=== PATIENT | female | born 1935 | race Caucasian/White ===

== ENCOUNTER → 2016-05-17 | Outpatient (CLI) | payer OTHER, BC ==
[~2016-05-17] MED LIST: ALEN70TA4 PO; AMIO200T4 PO; ASCO100061 PO; ASCO500T16 PO; B-CO1TAB21 PO; CALC-51 PO; CHOL100027 PO; CLC100 PO; CRAN500C2 PO; DTR5 PO; ENOX40IN SQ; FLM4 PO; HYDR-5688 PO; KFL500 PO; LEVO125T4 PO; MAGN250T12 PO; MULTTAB58 PO; NITR-5 PO; OXYC1TAB3 PO; PROBCAP8 PO; SPIR25TA89 PO; SYN112 PO; VITA100C4 PO; VITA400C3 PO; [UNRECOGNIZED DRUG - CODE] PO
== END | disposition home or self-care (01) ==
LOC: C.LABSPEC 17:34
PROVIDERS: ATTEND Nurse Practitioner Adult Health
DX: N39.0 Urinary tract infection, site not specified (principal)

== ENCOUNTER → 2016-06-07 | Outpatient (CLI) | payer OTHER, BC ==
[2016-06-07 16:42] LABS: BLOOD UREA NITROGEN 30 mg/dl (7-18); CALCIUM 9.1 mg/dl (8.5-10.1); CARBON DIOXIDE 28 mmol/L (21-32); CHLORIDE 108 mmol/L (98-107); GLUCOSE 114 mg/dl (70-99); POTASSIUM 5.6 mmol/L (3.5-5.1); SODIUM 141 mmol/L (136-145)
== END | disposition home or self-care (01) ==
LOC: C.LAB1850 14:34
PROVIDERS: ATTEND Nurse Practitioner Adult Health
DX: N39.0 Urinary tract infection, site not specified (principal)

== ENCOUNTER → 2016-09-15 | Outpatient (CLI) | payer OTHER, BC ==
[2016-09-15 10:55] LABS: BASO % 0.5 %; BASO ABS # 0.03 K/uL (0-0.2); COMPLETE YES; EOS % 2.5 %; HEMATOCRIT 39.1 % (37-47); LYMPH % 24.2 %; LYMPH ABS # 1.35 K/uL (1.2-3.4); MEAN CELL VOLUME 95.4 fL (80-100); MEAN CORPUSCULAR HGB CONC 31.5 g/dl (32-36); MEAN PLATELET VOLUME 10.3 fL (7.4-10.4); MONO % 6.1 %; NEUT % 66.7 %; PLATELET COUNT 270 K/uL (130-400); WHITE BLOOD COUNT 5.57 K/uL (4.8-10.8)
[2016-09-15 11:23] LABS: BLOOD UREA NITROGEN 26 mg/dl (7-18); BUN/CREATININE RATIO 14.2 (10-20); CALCIUM 9.1 mg/dl (8.5-10.1); CARBON DIOXIDE 30 mmol/L (21-32); CHLORIDE 106 mmol/L (98-107); GLUCOSE 80 mg/dl (70-99); POTASSIUM 4.8 mmol/L (3.5-5.1); SODIUM 140 mmol/L (136-145)
[2016-09-15 11:34] LABS: CHOLESTEROL 147 mg/dl (0-200); CHOLESTEROL/HDL RATIO 3.6; HDL CHOLESTEROL 41 mg/dl; LDL CHOLESTEROL CALCULATED 85 mg/dl; TRIGLYCERIDES 103 mg/dl (0-150); VERY LOW DENSITY LIPOPROT CALC 21 mg/dl
[2016-09-15 12:35] LABS: ESTIMATED AVERAGE GLUCOSE 120 mg/dl; HA1C FLAG Normal (Normal)
--- NOTE | 2016-09-22 08:53 | CODING QUERY MEDICAL NECESSITY ---
SUPPORTING DIAGNOSIS NEEDED Dr. Blakely, A supporting diagnosis is required for the test/procedure performed on this patient in order for us to be reimbursed by the patient's insurance. Please provide a supporting diagnosis for the following test/procedure listed below next to the test name along with your signature. *If there is no additional diagnosis for this patient that would support the following test/procedure please document that below next to the test/procedure. Test(s)/Procedure(s) that require a supporting diagnosis: * [id number] GLYCATED HEMOGLOBIN DIAGNOSIS: DATE OF SERVICE: 09/15/16 Provider Signature: Date: Thank you [facility] Information Management Once completed, please kindly fax back to [phone] For questions please call [phone]
== END | disposition home or self-care (01) ==
LOC: C.LAB1850 09:31
PROVIDERS: ATTEND Internal Medicine
DX: I10 Essential (primary) hypertension (principal); N39.41 Urge incontinence; R32 Unspecified urinary incontinence; N39.0 Urinary tract infection, site not specified; E74.39 Other disorders of intestinal carbohydrate absorption; Z13.1 Encounter for screening for diabetes mellitus

== ENCOUNTER → 2016-11-15 | Outpatient (CLI) | payer OTHER, BC | END | disposition home or self-care (01) | LOC: C.LABSPEC 17:02 | PROVIDERS: ATTEND Urology | DX: N39.0 Urinary tract infection, site not specified (principal) ==

== ENCOUNTER 2016-12-03 11:23 | Emergency (ER) | payer OTHER, BC ==
[~2016-12-03] VITALS: Ht 160 cm; Wt 58.0 kg
[~2016-12-03 11:23] MED LIST changes: -ALEN70TA4 PO; -ASCO500T16 PO; -CHOL100027 PO; -CRAN500C2 PO; -NITR-5 PO; -OXYC1TAB3 PO; -SYN112 PO; -VITA400C3 PO
[2016-12-03 11:27] VITALS: TEMP 37; Ht 160 cm; Wt 58.0 kg
[2016-12-03] MEDS ORDERED: MoRPHine SULFATE 4 MG/ML 1 ML CARP\\VIAL IM STA (11:49)
--- NOTE | 2016-12-03 12:26 | DIAGNOSTIC IMAGING REPORT ---
SACRUM COCCYX MIN 2 VIEWS CLINICAL HISTORY: fall lower coccyx pain trauma COMPARISON STUDY: None FINDINGS: Nondisplaced cortical fracture sacrococcygeal junction. Old fracture right pubic ring. Moderate degenerative change sacroiliac joints. Significant degenerative change lumbar spine. IMPRESSION: Nondisplaced cortical fracture sacrococcygeal junction The above report was generated using voice recognition software. It may contain grammatical, syntax or spelling errors. Electronically signed by: Juni Russo M.D. 12/03/2016 12:24 PM Dictated Date/Time: 12/03/2016 12:22 PM
--- NOTE | 2016-12-03 12:28 | DIAGNOSTIC IMAGING REPORT ---
L PELVIS/UNILATERAL HIP 2-3VIEWS CLINICAL HISTORY: L hip pain trauma COMPARISON: 06/17/2014 DISCUSSION: Operative changes consistent with a a prior left hip pinning procedure. PROCEDURE: Described intertrochanteric fracture has healed. Old fracture right pubic ring unchanged. There is no evidence for soft tissue swelling. IMPRESSION: Findings consistent with old trauma as well as postoperative change. No acute process. The above report was generated using voice recognition software. It may contain grammatical, syntax or spelling errors. Electronically signed by: Juni Russo M.D. 12/03/2016 12:26 PM Dictated Date/Time: 12/03/2016 12:25 PM
[2016-12-03] MEDS ORDERED: SYN112 PO (12:38)
[2016-12-03] MEDS ORDERED: CRAN500C2 PO (12:38)
[2016-12-03] MEDS ORDERED: CHOL100027 PO (12:38)
[2016-12-03] MEDS ORDERED: NITR-5 PO (12:38)
[2016-12-03] MEDS ORDERED: ASCO500T16 PO (12:38)
[2016-12-03] MEDS ORDERED: VITA400C3 PO (12:38)
[2016-12-03] MEDS ORDERED: ALEN70TA4 PO (12:38)
[2016-12-03] MEDS ORDERED: OXYC1TAB3 PO (13:26)
[2016-12-03 13:51] VITALS: BP 151/73; PULSE 67; O2SAT 94
--- NOTE | 2016-12-03 15:14 | EMERGENCY ROOM VISIT NOTE ---
History Report prepared by Keaganibsherron: Edith Mallory Under the Supervision of: Dr. Yony Page D.O. First contact with patient: 11:41 Chief Complaint: FALL Stated Complaint: FELL X 2 WKS. AGO, TAILBONE PAIN History of Present Illness The patient is an 81 year old female who presents to the Emergency Room with complaints of worsening tailbone bone. She is accompanied by her . She reports she fell approximately 2 and a half weeks ago in her bathroom and landed on her bottom, bruising her coccyx. She denies hitting her head or losing consciousness. She followed up with [facility] and no broken bones were seen via X-Ray. In the past 2 days, her pain has worsened. She rates her current pain as an 8/10 in severity. Aleve has provided minimal relief. Her reports she has a history of two previous back surgeries and a broken pelvis. The patient denies any recent weakness or numbness in her bilateral legs. She is still able to urinate and defecate normally. She has experienced no saddle anesthesia or numbness in her groin. The patient also denies headache , change in vision, fevers, chest pain, shortness of breath, abdominal pain, nausea, vomiting, diarrhea, pain with urination, and melena. 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 A total of 10 systems reviewed and were otherwise negative. Past Medical & Surgical Medical Problems: (1) AORTIC VALVE DISORDER (2) HYPERTENSION NOS Social History Smoking Status: Never Smoker Alcohol Use: none Drug Use: none Marital Status: Housing Status: lives with family Occupation Status: retired Current/Historical Medications Scheduled Alendronate Sodium (Fosamax), 70 MG PO WK Amiodarone Hcl (Cordarone), 100 MG PO BID Ascorbic Acid (Ascorbic Acid), 500 MG PO BID B-Complex W/Biotin & Folic Aci (Vitamin B50 Complex Tr), 1 TAB PO QAM Beta Carotene (Beta Carotene), 10,000 UNIT PO DAILY Calcium Carbonate-Vitamin D (Calcium), 1 TABLETS PO BID Cholecalciferol (Vitamin D 1000 Unit), 2,000 INTER.UNIT PO DAILY Cranberry (Vaccinium Macrocarp (Cranberry), 500 MG PO DAILY Levothyroxine Sodium (Synthroid), 112 MCG PO DAILY Magnesium Oxide (Magnesium Oxide), 250 MG PO DAILY Multiple Vitamin (Multivitamin), 1 TABLET PO QAM Nitrofurantoin Monohyd Macrocr (Macrobid), 100 MG PO DAILY Probiotic Product (Probiotic Pearls), 1 CAP PO QAM Spironolactone (Aldactone), 25 MG PO AMPM Vitamin E (Vitamin E 400 Iu), 400 INTER.UNIT PO DAILY Scheduled PRN Oxycodone Immediate Rel Tab (Roxicodone Ir), 5 MG PO Q6H PRN for Pain Allergies Coded Allergies: No Known Allergies (Verified , 12/03/16) Physical Exam Vital Signs Date Time Temp Pulse Resp B/P (MAP) Pulse Ox O2 Delivery O2 Flow Rate FiO2 12/03/16 13:51 67 20 151/73 94 12/03/16 11:27 37.0 79 20 180/72 95 Physical Exam GENERAL: Patient is alert, sitting up in bed, cachectic, no acute distress, non- toxic, holding left lower buttock HEAD: Normocephalic, atraumatic EYE EXAM: normal conjunctiva OROPHARYNX: no exudate, no erythema, lips, buccal mucosa, and tongue normal and mucous membranes are moist NECK: supple, no nuchal rigidity, no adenopathy, non-tender LUNGS: Clear to auscultation. Normal chest wall mechanics HEART: no murmurs, S1 normal and S2 normal ABDOMEN: abdomen soft, non-tender, normo-active bowel sounds, no masses, no rebound or guarding. BACK: Tenderness over left gluteus/coccyx. Back is symmetrical on inspection and there is no deformity, no midline tenderness, no CVA tenderness. SKIN: no rashes and no bruising UPPER EXTREMITIES: upper extremities are grossly normal. LOWER EXTREMITIES: Flexion, extension of hip, knee, ankles and EHL is 5/5. Gross sensation intact. No pitting edema. NEURO EXAM: Normal sensorium Medical Decision & Procedures ER Provider Diagnostic Interpretation: Radiology results as stated below per my review and the radiologist's interpretation: SACRUM COCCYX MIN 2 VIEWS CLINICAL HISTORY: fall lower coccyx pain trauma COMPARISON STUDY: None FINDINGS: Nondisplaced cortical fracture sacrococcygeal junction. Old fracture right pubic ring. Moderate degenerative change sacroiliac joints. Significant degenerative change lumbar spine. IMPRESSION: Nondisplaced cortical fracture sacrococcygeal junction The above report was generated using voice recognition software. It may contain grammatical, syntax or spelling errors. Electronically signed by: Juni Russo M.D. 12/03/2016 12:24 PM L PELVIS/UNILATERAL HIP 2-3VIEWS CLINICAL HISTORY: L hip pain trauma COMPARISON: 06/17/2014 DISCUSSION: Operative changes consistent with a a prior left hip pinning procedure. PROCEDURE: Described intertrochanteric fracture has healed. Old fracture right pubic ring unchanged. There is no evidence for soft tissue swelling. IMPRESSION: Findings consistent with old trauma as well as postoperative change. No acute process. The above report was generated using voice recognition software. It may contain grammatical, syntax or spelling errors. Electronically signed by: Juni Russo M.D. 12/03/2016 12:26 PM Medications Administered Medications (Trade) Dose Ordered Sig/Jennifer Route Start Time Stop Time Status Last Admin Dose Admin Morphine Sulfate (MoRPHine SULFATE INJ) 3 mg NOW STAT IM 12/03/16 11:49 12/03/16 11:52 DC 12/03/16 12:04 3 MG ED Course ED COURSE: Vital signs were reviewed and showed the patient is hypertensive The patients medical record was reviewed The above diagnostic studies were performed and reviewed. ED treatments and interventions as stated above. 1143: The patient was evaluated in room A12. A complete history and physical examination was performed. 1149: Morphine Sulfate 3 mg IM. 1300: Upon reevaluation, the patient is feeling much better. I discussed my findings with the patient and she understands and agrees with the treatment plan. Based on the patients age, coexisting illnesses, exam and lab findings the decision to treat as an outpatient was made. The patient remained stable while under my care. The patient appeared well at the time of discharge. Medical Decision Etiologies such as fracture, dislocation, neurovascular compromise, compartment syndrome, soft tissue injury, as well as others were entertained. Patient is an 81-year-old female that presents to ER for coccyx pain following a fall 2 weeks ago. She notes it is worsening. X-rays show a hairline fracture. I do believe that this is the cause of her pain. No focal deficit. Patient family were updated at bedside. She was given IM morphine and felt significantly better. She was discharged to follow-up with orthopedics with a hairline coccyx fracture. Discussed with Pt concerning signs and symptoms to watch out for. Pt was instructed to follow up with their PCP and discussed with the patient their option to return to the ED at anytime for persistent or worsening symptoms. The appropriate anticipatory guidance and out-patient management, including indications for return to the emergency department, were explained at length to the patient and understood. [place] Drug Monitoring Program Search Results: patient reviewed within database, no issues identified Medication Reconcilliation Current Medication List: was personally reviewed by me Blood Pressure Screening Patient's blood pressure: Elevated blood pressure Blood pressure disposition: Elevated BP felt to be situational Impression Primary Impression: Fracture of coccyx Scribe Attestation The scribe's documentation has been prepared under my direction and personally reviewed by me in its entirety. I confirm that the note above accurately reflects all work, treatment, procedures, and medical decision making performed by me. Departure Information Dispostion Home / Self-Care Prescriptions Oxycodone Immediate Rel Tab (ROXICODONE IR) 5 Mg Tab 5 MG PO Q6H Y for Pain, #14 TAB Prov: Yony Page, DO 12/03/16 Referrals Garfield Blakely M.D. (PCP) Patient Instructions ED Fx Coccyx, [facility] Additional Instructions Please follow up with your primary care doctor or if you are a student, [facility] with in the next 24 hours. Any worsening of your symptoms, please return to the ED immediately. This includes any fevers greater than 100.4, worsening pain, chest pain, shortness breath, persistent nausea, vomiting, unable to eat or drink, or any other concerning signs or symptoms from your standpoint. You were given medications during this visit that will inhibit your ability to drive, operate machinery and work. Please do NOT drive, operate machinery or work for the next 12hrs. You were also given a prescription for a narcotic. While taking this medication you should also not drive, operate machinery and or work. Problem Qualifiers Primary Impression: Fracture of coccyx Encounter type: initial encounter Fracture type: closed Qualified Codes: S32.2XXA - Fracture of coccyx, initial encounter for closed fracture
== END 2016-12-03 13:53 | disposition home or self-care (01) ==
LOC: C.EDB 11:25 → C.EDA 13:53
DX: S32.2XXA Fracture of coccyx, initial encounter for closed fracture (principal); W19.XXXA Unspecified fall, initial encounter; Y92.002 Bathroom of unspecified non-institutional (private) residence as the place of occurrence of the external cause; I10 Essential (primary) hypertension; Z79.899 Other long term (current) drug therapy

== ENCOUNTER → 2017-03-21 | Outpatient (CLI) | payer OTHER, BC ==
[~2017-03-21] MED LIST changes: +ALEN70TA4 PO; -ASCO100061 PO; +ASCO500T16 PO; +CHOL100027 PO; -CLC100 PO; +CRAN500C2 PO; -DTR5 PO; -ENOX40IN SQ; -FLM4 PO; -HYDR-5688 PO; -KFL500 PO; -LEVO125T4 PO; +NITR-5 PO; +OXYC1TAB3 PO; +SYN112 PO; -VITA100C4 PO; +VITA400C3 PO
[2017-03-21 15:45] LABS: BASO % 0.7 %; BASO ABS # 0.04 K/uL (0-0.2); EOS % 3.3 %; HEMATOCRIT 38.3 % (37-47); HEMOGLOBIN 12.7 g/dL (12.0-16.0); IG# 0.01 K/uL (0.00-0.02); LYMPH % 14.8 %; MEAN CELL VOLUME 94.3 fL (80-100); MEAN CORPUSCULAR HEMOGLOBIN 31.3 pg (25-34); MEAN CORPUSCULAR HGB CONC 33.2 g/dl (32-36); MONO % 11.6 %; MONO ABS # 0.71 K/uL (0.11-0.59); NEUT % 69.4 %; NEUT ABS # 4.24 K/uL (1.4-6.5); PLATELET COUNT 320 K/uL (130-400); RED CELL DISTRIBUTION WIDTH CV 13.9 % (11.5-14.5)
[2017-03-21 16:01] LABS: BLOOD UREA NITROGEN 26 mg/dl (7-18); CALCIUM 9.2 mg/dl (8.5-10.1); CARBON DIOXIDE 29 mmol/L (21-32); CREATININE 1.69 mg/dl (0.60-1.20); GLUCOSE 95 mg/dl (70-99); POTASSIUM 5.2 mmol/L (3.5-5.1); SODIUM 132 mmol/L (136-145)
== END | disposition home or self-care (01) ==
LOC: C.LAB1850 14:58
PROVIDERS: ATTEND Internal Medicine Cardiovascular Disease
DX: S32.2XXA Fracture of coccyx, initial encounter for closed fracture (principal); X58.XXXA Exposure to other specified factors, initial encounter

== ENCOUNTER → 2017-05-11 | Outpatient (CLI) | payer OTHER, BC ==
--- NOTE | 2017-05-11 10:24 | DIAGNOSTIC IMAGING REPORT ---
MRI LUMBAR SPINE W/O CONTRAST CLINICAL HISTORY: LUMBAR STENOSIS RIGHT LEG WEAKNESS TECHNIQUE: Sagittal and axial T1, T2 and STIR images were obtained. COMPARISON STUDY: November 2015 OBSERVATIONS: There is a pronounced thoracolumbar scoliosis, making interpretation more difficult. The vertebral bodies and posterior elements appear intact. There is no abnormal bony signal present to suggest a marrow replacement process. L1-2: There is a mild circumferential disc bulge. There is slight triangular narrowing of the thecal sac. There is mild left-sided foraminal narrowing L2-3: There is a circumferential disc bulge. There is mild to moderate spinal stenosis. There is mild left-sided foraminal narrowing L3-4: There is a circumferential disc bulge. There is mild to moderate spinal stenosis. There is mild right-sided foraminal narrowing. L4-5: There is a circumferential disc bulge. There is mild to moderate spinal stenosis. There is severe right-sided foraminal narrowing. L5-S1: No disc protrusions or extrusions. No evidence of spinal canal or neural foraminal compromise. There are postsurgical changes of a left hemilaminectomy. The conus medullaris and cauda equina appear normal. IMPRESSION: 1. No significant change the preceding study 2. Multilevel spondylitic changes 3. Mild to moderate spinal stenosis the L2-3, L3-4, and L4-5 levels. 4. Severe right-sided foraminal narrowing at the L4-5 level. Electronically signed by: Romario Ng M.D. 05/11/2017 10:23 AM Dictated Date/Time: 05/11/2017 10:02 AM
== END | disposition home or self-care (01) ==
LOC: C.MRI 08:57
PROVIDERS: ATTEND Internal Medicine
DX: M48.061 Spinal stenosis, lumbar region without neurogenic claudication (principal)

== ENCOUNTER → 2017-07-20 | Outpatient (CLI) | payer OTHER, BC ==
[~2017-07-20] MED LIST changes: -OXYC1TAB3 PO
[2017-07-20 17:34] LABS: HEMATOCRIT 38.9 % (37-47); HEMOGLOBIN 12.8 g/dL (12.0-16.0); MEAN CELL VOLUME 94.6 fL (80-100); MEAN CORPUSCULAR HEMOGLOBIN 31.1 pg (25-34); MEAN CORPUSCULAR HGB CONC 32.9 g/dl (32-36); MEAN PLATELET VOLUME 9.8 fL (7.4-10.4); PLATELET COUNT 272 K/uL (130-400); RED CELL DISTRIBUTION WIDTH CV 14.8 % (11.5-14.5); RED CELL DISTRIBUTION WIDTH SD 51.5 fL (36.4-46.3); WHITE BLOOD COUNT 5.42 K/uL (4.8-10.8)
[2017-07-20 18:01] LABS: BLOOD UREA NITROGEN 33 mg/dl (7-18); CALCIUM 8.8 mg/dl (8.5-10.1); CARBON DIOXIDE 29 mmol/L (21-32); CREATININE 1.66 mg/dl (0.60-1.20); GLUCOSE 73 mg/dl (70-99); POTASSIUM 5.2 mmol/L (3.5-5.1); SODIUM 137 mmol/L (136-145)
== END | disposition home or self-care (01) ==
LOC: C.LAB1850 16:11
PROVIDERS: ATTEND Physician Assistant
DX: D64.9 Anemia, unspecified (principal); N28.9 Disorder of kidney and ureter, unspecified

== ENCOUNTER 2019-12-28 13:14 | Inpatient (IN) ==
--- NOTE | 2019-12-28 13:52 | Emergency Department Note ---
History of Present Illness General Chief complaint: Leg Injury/Pain Stated complaint: RIGHT LEG SWELLING,WARM Time Seen by Provider: 12/28/19 13:22 Source: patient and family ( who is at the bedside) Mode of arrival: ambulatory Limitations: no limitations History of Present Illness Maximum Pain Intensity: 0 This patient comes in after having some weeping from her right leg. It has been swollen since she had hip surgery about 2 to 3 months ago but she has some clear fluid coming from one small area. The swelling is actually gone down. She has mild swelling her left leg but it does not compared to the right. She has an abrasion on her right callaway that is been there for couple weeks that is healing. She has an old bedsore on the left callaway and right ankle which is also been healing. No fever or chills or redness or warmth. She cannot walk after the surgery and she is wheelchair-bound but lives at home she gets physical therapy 3 times a day. No fever or exposure to [facility]. She did tear her rotator cuff bilaterally about a month ago and she is followed by Dr. Mora for all of her orthopedic issues. No chest pain or shortness of breath occasional cough when she lays flat at night but no shortness of breath when laying flat. She is not on any blood thinner she is had no bleeding or abdominal pain. No urinary symptoms. Home Medications Home Medications Medication Instructions Recorded Confirmed Type Lactobacillus acidophilus 1 1,000 mmu cells PO QAM tab 10/09/18 12/28/19 History billion cell tablet ascorbic acid (vitamin C) 500 mg 500 mg PO BID tab 10/09/18 12/28/19 History tablet calcium carbonate 500 mg calcium 500 mg PO BID tab 10/09/18 12/28/19 History (1,250 mg) tablet multivitamin 1 tab PO QAM 10/09/18 12/28/19 History vitamin B complex 1 tab PO QAM 10/09/18 12/28/19 History vitamin E (dl, acetate) 400 unit 400 units PO QAM 10/09/18 12/28/19 History capsule amiodarone 200 mg tablet 100 mg PO BID #90 tab 07/21/19 12/28/19 Rx alprazolam 0.5 mg tablet 0.5 mg PO HS #90 tab 08/05/19 12/28/19 Rx levothyroxine [Euthyrox] 125 mcg PO QAM 10/05/19 12/28/19 History spironolactone 25 mg PO BID 10/05/19 12/28/19 History alendronate 70 mg PO WK 11/16/19 12/28/19 History peg 400-propylene glycol [Systane 2 drp OPHTHALMIC (EYE) BID PRN 11/16/19 12/28/19 History (propylene glycol)] trimethoprim 100 mg PO QAM 11/16/19 12/28/19 History beta [id number] 1 tab PO QDD 12/28/19 12/28/19 History cholecalciferol (vitamin D3) 50 mcg PO QAM 12/28/19 12/28/19 History [Vitamin D3] diphenhydramine-acetaminophen 2 tab PO HS 12/28/19 12/28/19 History [Tylenol PM Extra Strength] Allergies Allergy/AdvReac Type Severity Reaction Status Date / Time No Known Drug Allergies Allergy Unknown Verified 12/28/19 16:49 Past Med/Surg History Medical History Aortic valve disorder (10/16/12) Benign familial tremor Dysfunction of right eustachian tube Fracture of coccyx Hip fracture, left Idiopathic polyneuropathy Kidney congenitally absent, right Lichen sclerosus Osteoporosis Sensorineural hearing loss (SNHL) of both ears Sensorineural hearing loss (SNHL) of both ears Tinnitus Urge incontinence of urine Varicose veins of both legs with edema Surgical History Femur fracture History of femur repair History of back surgery History of bunionectomy History of knee replacement History of ligation of vein ligation of Long saphenous vein History of lumbar laminectomy Family History Father Lung cancer Mother Lymphoma Other Heart disease Hypertension Social History Smoking Status: Never smoker Hx Alcohol Use: No Hx Substance Use: No Preferred Language: Estonian Communication Ability: Effective Director Of Dietary Required: No Beliefs That Will Affect Care: None marital status: Current Living Situation: Spouse current occupational status: retired Feels Safe at Home: Yes Assistive Devices: Walker Review of Systems A total of 10 systems reviewed and were otherwise negative Physical Exam Vital Signs Vital Signs - 24 hr 12/28/19 13:17 12/28/19 13:57 12/28/19 14:11 Temperature 36.6 C Temperature Source Oral Pulse Rate 74 66 Pulse Rate [Apical] Pulse Rate from SpO2 Sensor 66 Respiratory Rate 16 19 Blood Pressure 161/76 H 150/71 H Blood Pressure [Right Arm] Blood Pressure Mean 104 100 Blood Pressure Mean [Right Arm] Pulse Oximetry 95 98 99 Oxygen Delivery Method Room Air Room Air Room Air Oxygen Flow Rate 0 Sepsis Recent Fever Within 48 Hours No Sepsis New/Unexplained Change in Mental Status N/A Sepsis Action Taken by Nursing No Action Required 12/28/19 16:00 12/28/19 17:33 Temperature Temperature Source Pulse Rate Pulse Rate [Apical] 67 71 Pulse Rate from SpO2 Sensor Respiratory Rate 18 23 Blood Pressure Blood Pressure [Right Arm] 168/72 H 161/70 H Blood Pressure Mean Blood Pressure Mean [Right Arm] 104 100 Pulse Oximetry 99 97 Oxygen Delivery Method Room Air Oxygen Flow Rate Sepsis Recent Fever Within 48 Hours Sepsis New/Unexplained Change in Mental Status Sepsis Action Taken by Nursing General: Well developed well nourished older female who in no acute distress, breathing comfortably on room air. Normal speech HEENT: Normal cephalic atraumatic. Pupils are equal round and reactive to light. Sclera anicteric extraocular movements are intact. Oropharynx is pink with moist mucous membranes. No swelling of the mouth lips or tongue. Neck: Supple with a midline trachea. No meningeal signs or stiffness, no JVD or bruits. No Stridor. Chest: Clear to auscultation bilaterally. No wheezes or rhonchi. No increased work of breathing. Heart: Regular rate and rhythm without murmurs or gallops. Abdomen: Soft nontender, nondistended without rebound guarding or rigidity. Extremities: No cyanosis. She has edema in her right lower extremity there is a small amount of clear drainage. No secondary cellulitis. There is trace to 1+ edema on the left lower extremity. She has an area in her callaway that is healing from an abrasion. She has an area on her left heel as well as the right lateral foot that are healing pressure ulcers and are not red or warm and without drainage.. No calf tenderness Spine/Back. Non tender to palpation. No CVA tenderness Skin: Good turgor without rashes. Neurologic exam: Cranial nerves two through 12 are intact. Motor and sensation are intact and symmetrical throughout. Course Administered Medications Discontinued Medications Heparin Sodium/Dextrose (Heparin Iv Standard *No* Bolus) 1 ea IV ONE ONE; Protocol Stop: 12/28/19 16:45 Last Admin: 12/28/19 17:33 Dose: Not Given Documented by: [id number] Heparin Sodium/Dextrose (Heparin 48164 Unit/500 Ml D5w) Confirm Administered Dose 25,000 units IV .STK-MED ONE Stop: 12/28/19 17:05 Last Admin: 12/28/19 17:29 Dose: 18 units Documented by: [id number] Cosigned by: [id number] Medical Decision Making Differential Diagnosis Postop swelling, cellulitis, DVT, CHF, malnutrition, renal insufficiency, electrolyte or metabolic abnormalities, sepsis, trauma Medical Records Attestation: I reviewed the patient's medical records. Home Medications Current Medication List: was personally reviewed by me Laboratory Data Attestation: I reviewed the patient's lab results. Result diagrams: 12/28/19 14:11 12/28/19 14:11 Lab Results 12/28/19 12/28/19 12/28/19 Range/Units 14:11 14:11 14:11 WBC 6.03 (4.8-10.8) K/uL RBC 3.46 L (4.2-5.4) M/uL Hgb 10.5 L (12.0-16.0) g/dL Hct 33.1 L (37-47) % MCV 95.7 (80-100) fL MCH 30.3 (25-34) pg MCHC 31.7 L (32-36) g/dL RDW Std Deviation 56.9 H (36.4-46.3) fL RDW Coeff of Bret 16.2 H (11.5-14.5) % Plt Count 314 (130-400) K/uL MPV 9.0 (7.4-10.4) fL Immature Gran % (Auto) 0.2 % Neut % (Auto) 73.7 % Lymph % (Auto) 15.6 % Cooper % (Auto) 8.0 % Eos % (Auto) 2.3 % Baso % (Auto) 0.2 % Neut # (Auto) 4.45 (1.4-6.5) K/uL Lymph # (Auto) 0.94 L (1.2-3.4) K/uL Cooper # (Auto) 0.48 (0.11-0.59) K/uL Eos # (Auto) 0.14 (0-0.5) K/uL Baso # (Auto) 0.01 (0-0.2) K/uL Immature Gran # (Auto) 0.01 (0.00-0.02) K/uL PT 10.9 (9.0-12.0) Seconds INR 1.0 (0.9-1.1) APTT 27.3 (21.0-31.0) Seconds PTT Ratio 1.0 Sodium 136 (136-145) mmol/L Potassium 4.9 (3.5-5.1) mmol/L Chloride 103 (98-107) mmol/L Carbon Dioxide 29 (21-32) mmol/L Anion Gap 4.0 (3-11) BUN 26 H (7-18) mg/dl Creatinine 1.27 H (0.6-1.2) mg/dl Est Cr Clr Drug Dosing Not Reportable Est GFR ( Amer) 44.3 Est GFR (Non-Af Amer) 38.2 BUN/Creatinine Ratio 20.1 H (10-20) Glucose 89 (70-99) mg/dl Calcium 9.5 (8.5-10.1) mg/dl Total Bilirubin 0.3 (0.2-1) mg/dl AST 19 (15-37) U/L ALT 18 (12-78) U/L Alkaline Phosphatase 87 (45-117) U/L Troponin I 0.121 H* (0-0.045) ng/ml NT-Pro-B Natriuret Pep 534 (0-1800) pg/ml Total Protein 7.1 (6.4-8.2) gm/dl Albumin 3.1 L (3.4-5.0) gm/dl Globulin 4.0 (2.5-4.0) gm/dl Albumin/Globulin Ratio 0.8 L (0.9-2) Lipase 145 (73-393) U/L Imaging Data Attestation: I personally reviewed and interpreted this imaging study as follows: My Impression: Chest x-raythere is cardiomegaly but no overt CHF, infiltrate or pneumothorax Radiologist's Impression: ULTRASOUND RIGHT LOWER EXTREMITY VENOUS CLINICAL HISTORY: Right leg pain and swelling. COMPARISON STUDY: Right lower extremity venous ultrasound dated 10/25/2011. TECHNIQUE: Real-time, grayscale, and color Doppler sonography of the deep veins of the right lower extremity was performed from the inguinal crease to the calf. Compression and augmentation were utilized. FINDINGS: There is extensive and occlusive deep venous thrombosis seen throughout the right superficial femoral vein. Nonocclusive deep venous thrombosis is identified in the popliteal vein which extends in the calf within the posterior tibial and peroneal veins. The common femoral vein is patent and normally compressible. The greater saphenous vein and the profunda femoris vein at the junction with the common femoral vein are clear. Subcutaneous soft tissue edema is noted. IMPRESSION: Extensive right lower extremity deep venous thrombosis as above. This is occlusive throughout the superficial femoral vein. SINGLE VIEW CHEST CLINICAL HISTORY: Atypical chest pain. FINDINGS: An AP, portable, upright chest radiograph is compared to study dated 10/05/2019. The examination is degraded by portable technique and patient rotation. The heart is enlarged. The pulmonary vasculature is noncongested. There is elevation right hemidiaphragm with associated right basilar atelectasis. No airspace consolidation or large pleural effusion is identified. No pneumothorax is seen. The skeletal structures are osteopenic. The bony thorax is grossly intact. Arthritic change is seen in the shoulders. Superior subluxation of the humeral heads suggest chronic rotator cuff injuries. IMPRESSION: Cardiomegaly with no acute cardiopulmonary abnormality. ECG Data Attestation: I personally reviewed and interpreted this ECG as follows: Indication: + weakness Rate (beats per minute): 67 Rhythm: + normal sinus ECG Intervals/blocks: + First degree AV block, + Normal QRS and + Normal QT ECG [place]: + Normal ECG ST segments: + Normal ST segments ECG Findings: no PACs and no PVCs Comparison ECG Date: from (10/07/19) Change: no significant change MDM Narrative This patient comes in as described above. She was placed in room a 10. She has had swelling of her right leg. It does not appear to be cellulitic its not significantly red or warm. IV access established and blood work was obtained. I also did EKG and chest x-ray additionally ultrasound of the right lower extremity to evaluate for DVT. She was reassessed frequently. She is hemodynamically stable she has no chest pain or shortness of breath. EKG a ppears nonischemic however her troponin is mildly elevated 0.121. Additionally she has had extensive DVT in her right lower extremity. She did have hip surgery 2 to 3 months ago but no surgery since then. She has had no blood or melena stool no trauma no headache. There are no other current obvious contraindications for anticoagulation at this point particular given the large size of her DVT. I have discussed the case with Dr. Hatch, who will be admitting her and he wants to start on IV heparin and he did order this without a bolus. She does have swelling the leg which is likely related to the DVT with some weeping but no secondary cellulitis. She has no white count or fever to suggest infection. She has no significant electrolyte or metabolic abnormalities. Continuous cardiac monitoring: Given her lower extremity edema and need for cardiac/pulmonary work-up, an order was placed in the EMR for continuous cardiac monitoring. The patient was noted to be in normal sinus rhythm with a pulse of 71. Impression & Plan DVT (deep venous thrombosis), Elevated troponin I level, Edema of right lower extremity, S/P right hip fracture Discharge Plan Visit Data Chief Complaint: Leg Injury/Pain Stated Complaint: RIGHT LEG SWELLING,WARM ED Provider: Roger Noel Discharge Problem: DVT (deep venous thrombosis), Elevated troponin I level, Edema of right lower extremity, S/P right hip fracture Discharge Instructions Interventions: ED Discharge Assessment Last Done: 12/28/19 17:43 Forms Stand Alone Forms: My [facility] [place] Prescriptions Prescriptions: No Action amiodarone 200 mg tablet 100 mg PO BID Qty: 90 RF: 3 alprazolam 0.5 mg tablet 0.5 mg PO HS Qty: 90 RF: 1 Lactobacillus acidophilus 1 billion cell tablet 1,000 mmu cells PO QAM RF: 0 calcium carbonate [Calcium 500] 500 mg calcium (1,250 mg) tablet 500 mg PO BID RF: 0 multivitamin [Daily Multi-Vitamin] tablet 1 tab PO QAM RF: 0 vitamin B complex [Vitamins B Complex] tablet 1 tab PO QAM RF: 0 ascorbic acid (vitamin C) 500 mg tablet 500 mg PO BID RF: 0 vitamin E (dl, acetate) 400 unit capsule 400 units PO QAM RF: 0 levothyroxine [Euthyrox] 125 mcg tablet 125 mcg PO QAM RF: 0 spironolactone 25 mg tablet 25 mg PO BID RF: 0 beta [id number]-G-lutein-min29 5,000-60-30-2 geqc-cm-puly-mg Tablet 1 tab PO QDD RF: 0 cholecalciferol (vitamin D3) [Vitamin D3] 50 mcg (2,000 unit) Tablet 50 mcg PO QAM RF: 0 diphenhydramine-acetaminophen [Tylenol PM Extra Strength] 25-500 mg Tablet 2 tab PO HS RF: 0 trimethoprim 100 mg tablet 100 mg PO QAM RF: 0 Systane (propylene glycol) 0.4-0.3 % Drops 2 drp OPHTHALMIC (EYE) BID PRN (Reason: Dry Eyes) RF: 0 alendronate 70 mg tablet 70 mg PO WK RF: 0 Referrals Referrals: Garfield Blakely MD [Primary Care Provider] - Discharge Problem: DVT (deep venous thrombosis) Qualifiers: DVT location: lower extremity Affected thrombotic vein of extremity: femoral Chronicity: acute Laterality: right Qualified Code(s): I82.411 - Acute embolism and thrombosis of right femoral vein
[2019-12-28 14:18] LABS: Basophils # (auto) 0.01 K/uL (0-0.2); Basophils % (auto) 0.2 %; Eosinophils # (auto) 0.14 K/uL (0-0.5); Eosinophils % (auto) 2.3 %; Hematocrit (blood only) 33.1 % (37-47); Hemoglobin 10.5 g/dL (12.0-16.0); Immature Granulocytes # (auto) 0.01 K/uL (0.00-0.02); Immature Granulocytes % (auto) 0.2 %; Lymphocytes # (auto) 0.94 K/uL (1.2-3.4); Lymphocytes % (auto) 15.6 %; Mean Corpuscular Hemoglobin 30.3 pg (25-34); Mean Corpuscular Hgb Conc 31.7 g/dL (32-36); Mean Corpuscular Volume 95.7 fL (80-100); Monocytes # (auto) 0.48 K/uL (0.11-0.59); Neutrophils # (auto) 4.45 K/uL (1.4-6.5); Neutrophils % (auto) 73.7 %; Platelet Count 314 K/uL (130-400); RDW Coefficient of Variation 16.2 % (11.5-14.5); RDW Standard Deviation 56.9 fL (36.4-46.3); Red Blood Count 3.46 M/uL (4.2-5.4); White Blood Count 6.03 K/uL (4.8-10.8)
--- NOTE | 2019-12-28 14:26 | XRay Report ---
SINGLE VIEW CHEST CLINICAL HISTORY: Atypical chest pain. FINDINGS: An AP, portable, upright chest radiograph is compared to study dated 10/05/2019. The examina tion is degraded by portable technique and patient rotation. The heart is enlarged. The pulmonary vas culature is noncongested. There is elevation right hemidiaphragm with associated right basilar atelec tasis. No airspace consolidation or large pleural effusion is identified. No pneumothorax is seen. Th e skeletal structures are osteopenic. The bony thorax is grossly intact. Arthritic change is seen in the shoulders. Superior subluxation of the humeral heads suggest chronic rotator cuff injuries. IMPRESSION: Cardiomegaly with no acute cardiopulmonary abnormality. ACT 112: Negative or not required by law. Electronically signed by: Burt Candelaria M.D. 12/28/2019 2:25 PM
[2019-12-28 14:30] LABS: Partial Thromboplastin Time 27.3 Seconds (21.0-31.0); Prothrombin Time 10.9 Seconds (9.0-12.0)
[2019-12-28 14:33] LABS: Alanine Aminotransferase 18 U/L (12-78); Albumin Level 3.1 gm/dl (3.4-5.0); Aspartate Aminotransferase 19 U/L (15-37); BUN Creatinine Ratio 20.1 (10-20); Blood Urea Nitrogen 26 mg/dl (7-18); Calcium 9.5 mg/dl (8.5-10.1); Carbon Dioxide 29 mmol/L (21-32); Chloride 103 mmol/L (98-107); Est GFR (African American) 44.3; Est GFR (Non-African American) 38.2; Glucose 89 mg/dl (70-99); Lipase 145 U/L (73-393); Potassium 4.9 mmol/L (3.5-5.1); Sodium 136 mmol/L (136-145)
[2019-12-28 14:47] LABS: Albumin Globulin Ratio 0.8 (0.9-2); Alkaline Phosphatase 87 U/L (45-117); Bilirubin,Total 0.3 mg/dl (0.2-1); NT Pro B Type Natriuretic Pept 534 pg/ml (0-1800); Total Protein 7.1 gm/dl (6.4-8.2); Troponin I 0.121 ng/ml (0-0.045)
--- NOTE | 2019-12-28 15:42 | Ultrasound Report ---
ULTRASOUND RIGHT LOWER EXTREMITY VENOUS CLINICAL HISTORY: Right leg pain and swelling. COMPARISON STUDY: Right lower extremity venous ultrasound dated 10/25/2011. TECHNIQUE: Real-time, grayscale, and color Doppler sonography of the deep veins of the right lower ex tremity was performed from the inguinal crease to the calf. Compression and augmentation were utilize d. FINDINGS: There is extensive and occlusive deep venous thrombosis seen throughout the right superfici al femoral vein. Nonocclusive deep venous thrombosis is identified in the popliteal vein which extend s in the calf within the posterior tibial and peroneal veins. The common femoral vein is patent and n ormally compressible. The greater saphenous vein and the profunda femoris vein at the junction with t he common femoral vein are clear. Subcutaneous soft tissue edema is noted. IMPRESSION: Extensive right lower extremity deep venous thrombosis as above. This is occlusive throug hout the superficial femoral vein. ACT 112: Negative or not required by law. Electronically signed by: Burt Candelaria M.D. 12/28/2019 3:40 PM
[2019-12-28] MEDS ORDERED: Heparin IV Standard *NO* Bolus IV ONE (16:44)
--- NOTE | 2019-12-28 17:02 | History & Physical Report ---
Date of Service December 28, 2019 Assessment & Plan (1) Acute DVT (deep venous thrombosis): Provoked secondary to hip surgery although continued immobility - consider 6 months to lifelong anticoagulation depending on mobility. Heparin standard IV drip without bolus Pending improvement in renal function consider switching to DOAC tomorrow. (2) Elevated troponin I level: Suspect demand-ischemia. Repeat with AM labs. No EKG changes. No hypoxia, chest pain or shortness of breath to suggest PE. (3) Venous ulcers of both lower extremities: No areas definitive of cellulitis. WBC WNL. Antibiotics deferred currently. Elevated both lower extremities to see if erythema resolves. Wound nurse consult. (4) Paroxysmal atrial fibrillation: Currently in NSR. Continue rhythm control with amiodarone 100mg PO BID (5) Hypothyroidism: TSH 8.94 in July. Will repeat TSH with free T4 with AM labs to consider increasing levothyoxine (currently 125 mcg PO daily). (6) Essential tremor: Noted. (7) Hypertension: Hold spironolactone, clinically dry despite edema in legs. (8) CKD (chronic kidney disease) stage 3, GFR 30-59 ml/min: Monitor with AM labs. (9) Kidney congenitally absent, right: Admission and Anticipated Discharge Date Admission Date: 12/28/2019 History of Present Illness Chief Complaint: Right leg swelling Primary Care Provider: Garfield Blakely MD Geena Langston is an 84 year old female who presents to the ER with weeping fluid from her right leg. Difficult to get exact timeline from patient and her but they reports swelling in her right leg since her right hip operation in September after a hip fracture. However, the swelling has been much worse over the last 2 weeks right > left and her is very concerned about fluid seeping out from it. She has multiple venous ulcers / bed sores in various stages of healing which he is also finding harder to treat since her legs are so swollen. She took aspirin 81mg BID for 6 weeks following the operation but has not been on any antiplatelets/anticoagulation since. She denies any fevers or chills. She denies any history of congestive heart failure. She has been wheelchair-bound since this operation but has physical therapy 3 times a day. Of note she was recently treated for a pseudomonas UTI in November with ciprofloxacin. Her symptoms have completely resolved from this. In the ER US venous doppler confirmed extensive DVT in RLE. She also had a minimally elevated troponin but no EKG changes and denies any chest pain or shortness of breath. Allergies Allergy/AdvReac Type Severity Reaction Status Date / Time No Known Drug Allergies Allergy Unknown Verified 12/28/19 16:49 Home Medications Home Medications Medication Instructions Recorded Confirmed Type Lactobacillus acidophilus 1 1,000 mmu cells PO QAM tab 10/09/18 12/28/19 History billion cell tablet ascorbic acid (vitamin C) 500 mg 500 mg PO BID tab 10/09/18 12/28/19 History tablet calcium carbonate 500 mg calcium 500 mg PO BID tab 10/09/18 12/28/19 History (1,250 mg) tablet multivitamin 1 tab PO QAM 10/09/18 12/28/19 History vitamin B complex 1 tab PO QAM 10/09/18 12/28/19 History vitamin E (dl, acetate) 400 unit 400 units PO QAM 10/09/18 12/28/19 History capsule amiodarone 200 mg tablet 100 mg PO BID #90 tab 07/21/19 12/28/19 Rx alprazolam 0.5 mg tablet 0.5 mg PO HS #90 tab 08/05/19 12/28/19 Rx levothyroxine [Euthyrox] 125 mcg PO QAM 10/05/19 12/28/19 History spironolactone 25 mg PO BID 10/05/19 12/28/19 History alendronate 70 mg PO WK 11/16/19 12/28/19 History peg 400-propylene glycol [Systane 2 drp OPHTHALMIC (EYE) BID PRN 11/16/19 12/28/19 History (propylene glycol)] trimethoprim 100 mg PO QAM 11/16/19 12/28/19 History beta [id number] 1 tab PO QDD 12/28/19 12/28/19 History cholecalciferol (vitamin D3) 50 mcg PO QAM 12/28/19 12/28/19 History [Vitamin D3] diphenhydramine-acetaminophen 2 tab PO HS 12/28/19 12/28/19 History [Tylenol PM Extra Strength] Past Med/Surg History Medical History Aortic valve disorder (10/16/12) Benign familial tremor Dysfunction of right eustachian tube Fracture of coccyx Hip fracture, left Idiopathic polyneuropathy Kidney congenitally absent, right Lichen sclerosus Osteoporosis Sensorineural hearing loss (SNHL) of both ears Sensorineural hearing loss (SNHL) of both ears Tinnitus Urge incontinence of urine Varicose veins of both legs with edema Surgical History Femur fracture History of femur repair History of back surgery History of bunionectomy History of knee replacement History of ligation of vein ligation of Long saphenous vein History of lumbar laminectomy Family History Father Lung cancer Mother Lymphoma Other Heart disease Hypertension Social History Smoking Status: Never smoker Hx Alcohol Use: No Hx Substance Use: No Preferred Language: French Communication Ability: Effective Bioinformatics Specialist Required: No Beliefs That Will Affect Care: None marital status: Current Living Situation: Spouse current occupational status: retired Feels Safe at Home: Yes Safety Concerns: Feels Safe At This Time Assistive Devices: Denture - Upper, Denture - Lower, Glasses, Walker and Wheelchair Review of Systems Review of Systems: All systems reviewed & are unremarkable except as noted in HPI & below Physical Exam Constitutional: well developed and + frail appearing; + not well nourished and no acute distress Eyes: + anicteric sclerae; normal pupil size ENMT: external ear and nose normal, oropharynx normal Neck: trachea midline; no tracheal deviation Respiratory: normal respiratory effort, lungs clear to auscultation Cardiovascular: Rate/Rhythm: regular rate and regular rhythm Heart Sounds: no murmur Vessels: no JVD Extremities: normal capillary refill and + edema (3+ pitting edema R to hip, 2+ to mid callaway on L); no calf tenderness Gastrointestinal (Abdomen): normal bowel sounds, soft, nontender, no hepatosplenomegaly Musculoskeletal: Moving toes equally, unable to move her legs with current weight of them from swelling. Generalized chronic b/l equal muscle wasting. Skin: Right lateral malleolus (unstageable, healing) and heel ulcers (stage 2), Right heel ulcer Neurologic: moves all extremities and awake; no focal motor deficits (no later alizing weakness) and not confused Psychiatric: A+Ox3, euthymic affect Genitourinary: no CVA tenderness Results & Data Results & Data ([facility]) Vital Signs (Past 12 Hours) Vital Signs Temp Pulse Pulse Resp BP BP Pulse Ox 12/28/19 16:00 67 18 168/72 H 99 12/28/19 14:11 66 19 150/71 H 99 12/28/19 13:57 98 12/28/19 13:17 36.6 C 74 16 161/76 H 95 Diagnostic Findings SINGLE VIEW CHEST IMPRESSION: Cardiomegaly with no acute cardiopulmonary abnormality. ULTRASOUND RIGHT LOWER EXTREMITY VENOUS IMPRESSION: Extensive right lower extremity deep venous thrombosis as above. This is occlusive throughout the superficial femoral vein. ECG Indication: other Rate (beats per minute): 67 Rhythm: normal sinus Findings: + 1st degree AV block; no acute ischemic change Comparison ECG Date: from (October 07, 2019) Change: no significant change Code Status & VTE Plan Code Status DNR/DNI as discussed with the patient and her VTE Prophylaxis Plan VTE Prophylaxis will be ordered: Yes PG Care Time/CCT Total # of Minutes Spent Total Time Spent with Patient: Total time spent is greater than 50% in coordination of care (as documented) at patient's floor/unit and/or counseling patient: Coding Level of Care Code 91540 OBS Care - Level 3 Diagnoses Acute DVT (deep venous thrombosis) I82.409 Elevated troponin I level R77.8 Venous ulcers of both lower extremities I83.019; I83.029; L97.919; L97.929 Paroxysmal atrial fibrillation I48.0 Hypothyroidism E03.9 Essential tremor G25.0 Hypertension I15.2 Hypertension type: secondary to endocrine disorders CKD (chronic kidney disease) stage 3, GFR 30-59 ml/min N18.30 Kidney congenitally absent, right Q60.0 (1) Hypertension Hypertension type: secondary to endocrine disorders Qualified Code(s): I15.2 - Hypertension secondary to endocrine disorders
[2019-12-28] MEDS ORDERED: HEPARIN 25000 UNIT/500 ML D5W IV ONE (17:04)
[2019-12-28] MEDS ORDERED: PATIENT'S HEIGHT AND/OR WEIGHT NEEDED ONE (18:00)
[2019-12-28] MEDS: HEPARIN SODIUM/DEXTROSE 25,000 UNITS/500 ML BAG IV SCH ×2 (19:45→20:36)
[2019-12-28] MEDS ORDERED: ARTIFICIAL TEARS OP PRN (20:27)
[2019-12-28] MEDS ORDERED: NON-FORMULARY MEDICATION (Diphenhydramine-Acetaminophen [Tylenol Pm Extra Strength] 2 TAB) PO SCH (21:00)
[2019-12-28] MEDS: AMIODARONE 200 MG TAB PO SCH (21:29)
[2019-12-28] MEDS: CALCIUM CARBONATE 1250MG TAB PO SCH (21:29)
[2019-12-28] MEDS: ASCORBIC ACID 500 MG TAB PO SCH (21:30)
[2019-12-28] MEDS: ALPRAZolam 0.5 MG TABLET PO SCH (21:45)
[2019-12-28] MEDS: ACETAMINOPHEN 325 MG TAB PO PRN (21:45)
[2019-12-29 00:22] LABS: Partial Thromboplastin Ratio 2.6
[2019-12-29 00:30] LABS: Partial Thromboplastin Time 71.2 Seconds (21.0-31.0)
[2019-12-29] MEDS: LEVOTHYROXINE SODIUM 125 MCG TABLET PO SCH (05:15)
[2019-12-29 07:03] LABS: Hematocrit (blood only) 30.7 % (37-47); Hemoglobin 9.7 g/dL (12.0-16.0); Mean Corpuscular Hemoglobin 29.9 pg (25-34); Mean Corpuscular Hgb Conc 31.6 g/dL (32-36); Mean Corpuscular Volume 94.8 fL (80-100); Platelet Count 326 K/uL (130-400); RDW Standard Deviation 55.9 fL (36.4-46.3); Red Blood Count 3.24 M/uL (4.2-5.4); White Blood Count 4.97 K/uL (4.8-10.8)
[2019-12-29 07:25] LABS: Partial Thromboplastin Ratio 3.3
[2019-12-29 07:30] LABS: BUN Creatinine Ratio 17.5 (10-20); Calcium 9.3 mg/dl (8.5-10.1); Creatinine Clr Calc Pharmacy 28.8 ml/min; Est GFR (African American) 49.4; Est GFR (Non-African American) 42.6; Potassium 4.2 mmol/L (3.5-5.1)
[2019-12-29 07:32] LABS: Partial Thromboplastin Time 92.3 Seconds (21.0-31.0)
[2019-12-29 07:42] LABS: Thyroid Stimulating Hormone 12.5 uIu/ml (0.300-4.500); Troponin I 0.394 ng/ml (0-0.045)
[2019-12-29 07:56] LABS: T4 Free Thyroxine 1.46 ng/dl (0.8-1.6)
[2019-12-29] MEDS: CALCIUM CARBONATE 1250MG TAB PO SCH ×2 (08:45→22:10)
[2019-12-29] MEDS: AMIODARONE 200 MG TAB PO SCH ×2 (08:45→22:10)
[2019-12-29] MEDS: MULTIVITAMIN TAB PO SCH (08:46)
[2019-12-29] MEDS: ADVANCED PROBIOTIC 1250 MG CAPSULE PO SCH (08:46)
[2019-12-29] MEDS: VITAMIN B COMPLEX TAB PO SCH (08:46)
[2019-12-29] MEDS: CHOLECALCIFEROL 1,000 UNITS 25 MCG TAB PO SCH (08:46)
[2019-12-29] MEDS: TOCOPHERYL, DL-ALPHA 400 UNITS CAP PO SCH (08:46)
[2019-12-29] MEDS: ASCORBIC ACID 500 MG TAB PO SCH ×2 (08:46→22:11)
[2019-12-29 12:11] LABS: Appearance Urine Clear (Clear); Bilirubin Urine Negative (Negative); Blood Urine Negative (Negative); Color Urine Yellow; Glucose Urine UA Negative (Negative); Ketones Urine Negative (Negative); Leukocyte Esterase Urine Negative (Negative); Nitrite Urine Negative (Negative); Protein Urine Negative (Negative); Specific Gravity Urine 1.012 (1.000-1.030); Urobilinogen Urine Negative (Negative); pH Urine 8.5 (4.5-7.5)
--- NOTE | 2019-12-29 12:35 | Electrocardiogram Report ---
Test Reason : Blood Pressure : / mmHG Vent. Rate : 067 BPM Atrial Rate : 067 BPM P-R Int : 226 ms QRS Dur : 098 ms QT Int : 434 ms P-R-T Axes : 083 050 061 degrees QTc Int : 458 ms Sinus rhythm with 1st degree A-V block Incomplete right bundle branch block Otherwise normal ECG When compared with ECG of 07-OCT-2019 18:12, No significant change was found Confirmed by Janes Bran ([id number]) on 12/29/2019 12:35:02 PM Referred By: ED Confirmed By:Janes Bran
[2019-12-29 14:30] LABS: Partial Thromboplastin Ratio 1.9
[2019-12-29 14:43] LABS: Partial Thromboplastin Time 53.3 Seconds (21.0-31.0)
--- NOTE | 2019-12-29 15:20 | Hospitalist Progress Note ---
Date of Service December 29, 2019 Assessment & Plan (1) Acute DVT (deep venous thrombosis): Provoked secondary to remote hip surgery although continued immobility - consider 6 months to lifelong anticoagulation depending on mobility. Continue Heparin standard IV drip without bolus. Start warfarin 5mg daily, PTINR daily. (2) Elevated troponin I level: Suspect demand-ischemia. Repeat with AM labs. No EKG changes. No hypoxia, chest pain or shortness of breath to suggest PE/ACS. (3) Venous ulcers of both lower extremities: No areas definitive of cellulitis. WBC WNL. Antibiotics deferred currently. Erythema improving. Continue to elevate b/l LE. Wound nurse consult. (4) Paroxysmal atrial fibrillation: Currently in NSR. Continue rhythm control with amiodarone 100mg PO BID (5) Hypothyroidism: TSH 8.94 in July. Will repeat TSH with free T4 with AM labs to consider increasing levothyoxine (currently 125 mcg PO daily). (6) Essential tremor: Noted. (7) Hypertension: Cr improved and leg swelling improving with holding spironolactone. Continue off this and monitor BP. routinely. (8) CKD (chronic kidney disease) stage 3, GFR 30-59 ml/min: Monitor with AM labs. (9) Kidney congenitally absent, right: Admission and Anticipated Discharge Date Admission Date: December 28, 2019 Subjective at bedside feels legs have mildly improved in size. Patient feels much the same, no concerns or complaints at this time. Still having a lot of trouble moving her leg due to the weight of it. No fever or chills. Erythema improving. Regarding elevated troponin she denies any chest pain or shortness of breath. Discussed DOAC vs warfarin and given her renal function recommended warfarin. Review of Systems Review of Systems: All systems reviewed & are unremarkable except as noted in HPI & below Physical Exam Constitutional: well developed and + frail appearing; + not well nourished and no acute distress Eyes: + anicteric sclerae; normal pupil size ENMT: external ear and nose normal, oropharynx normal Respiratory: normal respiratory effort, lungs clear to auscultation Cardiovascular: Rate/Rhythm: regular rate and regular rhythm Heart Sounds: no murmur Vessels: no JVD Extremities: normal capillary refill and + edema (2+ pitting edema R to hip, 1+ to mid callaway on L); no calf tenderness Gastrointestinal (Abdomen): normal bowel sounds, soft, nontender, no hepatosplenomegaly Skin: + erythema (generalized right leg improving without antibiotics) Neurologic: moves all extremities and awake; no focal motor deficits (no lateralizing weakness) and not confused Psychiatric: A+Ox3, euthymic affect Results & Data Results & Data ([facility]) Vital Signs (Past 12 Hours) Vital Signs Temp Pulse Pulse Resp BP Pulse Ox 12/29/19 07:56 36.8 C 64 18 129/71 94 12/29/19 06:59 70 12/29/19 03:42 68 12/29/19 03:40 78 12/29/19 03:36 36.9 C 67 16 146/64 H 93 PG Care Time/CCT Total # of Minutes Spent Total Time Spent with Patient: Total time spent is greater than 50% in coordination of care (as documented) at patient's floor/unit and/or counseling patient: Coding Level of Care Code 24252 Subseq Hosp Care Lvl 2 Diagnoses Acute DVT (deep venous thrombosis) I82.409 Elevated troponin I level R77.8 Venous ulcers of both lower extremities I83.019; I83.029; L97.919; L97.929 Paroxysmal atrial fibrillation I48.0 Hypothyroidism E03.9 Essential tremor G25.0 Hypertension I15.2 Hypertension type: secondary to endocrine disorders CKD (chronic kidney disease) stage 3, GFR 30-59 ml/min N18.30 Kidney congenitally absent, right Q60.0 (1) Hypertension Hypertension type: secondary to endocrine disorders Qualified Code(s): I15.2 - Hypertension secondary to endocrine disorders
--- NOTE | 2019-12-29 15:54 | XCELERA ---
[id number]
[2019-12-29] MEDS ORDERED: [UNRECOGNIZED DRUG - OTHER] PO SCH (16:30)
[2019-12-29] MEDS ORDERED: WARFARIN SOD 10 MG TAB PO ONE (16:59)
[2019-12-29] MEDS ORDERED: WARFARIN SOD 5 MG TAB PO ONE (17:01)
[2019-12-29] MEDS: ALPRAZolam 0.5 MG TABLET PO SCH (22:11)
[2019-12-30] MEDS: HEPARIN SODIUM/DEXTROSE 25,000 UNITS/500 ML BAG IV SCH (02:00)
[2019-12-30] MEDS: LEVOTHYROXINE SODIUM 125 MCG TABLET PO SCH (05:25)
[2019-12-30 06:22] LABS: Basophils # (auto) 0.03 K/uL (0-0.2); Basophils % (auto) 0.5 %; Eosinophils # (auto) 0.19 K/uL (0-0.5); Eosinophils % (auto) 3.4 %; Hematocrit (blood only) 30.3 % (37-47); Hemoglobin 9.7 g/dL (12.0-16.0); Lymphocytes # (auto) 1.55 K/uL (1.2-3.4); Lymphocytes % (auto) 27.7 %; Mean Corpuscular Volume 93.8 fL (80-100); Mean Platelet Volume 9.1 fL (7.4-10.4); Monocytes # (auto) 0.42 K/uL (0.11-0.59); Monocytes % (auto) 7.5 %; Neutrophils % (auto) 60.9 %; Platelet Count 293 K/uL (130-400); RDW Coefficient of Variation 15.7 % (11.5-14.5); RDW Standard Deviation 53.7 fL (36.4-46.3); Red Blood Count 3.23 M/uL (4.2-5.4); White Blood Count 5.59 K/uL (4.8-10.8)
[2019-12-30 06:38] LABS: INR 1.1 (0.9-1.1); Partial Thromboplastin Ratio 2.4; Partial Thromboplastin Time 66.4 Seconds (21.0-31.0); Prothrombin Time 11.1 Seconds (9.0-12.0)
[2019-12-30 08:07] LABS: BUN Creatinine Ratio 16.2 (10-20); Calcium 8.7 mg/dl (8.5-10.1); Creatinine Clr Calc Pharmacy 28.6 ml/min; Est GFR (African American) 48.9; Est GFR (Non-African American) 42.2; Potassium 3.9 mmol/L (3.5-5.1)
[2019-12-30 08:18] LABS: Troponin I 0.679 ng/ml (0-0.045)
[2019-12-30] MEDS: ASCORBIC ACID 500 MG TAB PO SCH ×2 (08:36→21:31)
[2019-12-30] MEDS: CALCIUM CARBONATE 1250MG TAB PO SCH ×2 (08:36→21:30)
[2019-12-30] MEDS: TOCOPHERYL, DL-ALPHA 400 UNITS CAP PO SCH (08:36)
[2019-12-30] MEDS: CHOLECALCIFEROL 1,000 UNITS 25 MCG TAB PO SCH (08:36)
[2019-12-30] MEDS: AMIODARONE 200 MG TAB PO SCH ×2 (08:36→21:30)
[2019-12-30] MEDS: ADVANCED PROBIOTIC 1250 MG CAPSULE PO SCH (08:36)
[2019-12-30] MEDS: VITAMIN B COMPLEX TAB PO SCH (08:36)
[2019-12-30] MEDS: MULTIVITAMIN TAB PO SCH (08:36)
[2019-12-30] MEDS ORDERED: VANCOMYCIN CONSULT ACTIVE PRN (14:45)
[2019-12-30] MEDS ORDERED: VANCOMYCIN HCL 1,250 MG in SODIUM CHLORIDE 0.9% 250 ML IV ONE (15:30)
--- NOTE | 2019-12-30 16:39 | XRay Report ---
XR foot RT 2V CLINICAL HISTORY: right lateral foot ulcer; eval osteomyelitis COMPARISON: None FINDINGS: Tarsometatarsal joints are intact. There is hallux valgus deformity. Right foot and ankle soft tissue swelling is noted. A wound of the lateral right ankle/hindfoot is noted. There is associa joel soft tissue swelling. There is no radiographic evidence for osteomyelitis within the right foot o r ankle. 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 No acute frac ture is identified. IMPRESSION: Wound of the lateral right ankle/hindfoot. No radiographic evidence for osteomyelitis. Soft tissue sw elling. ACT 112: Negative or not required by law. Electronically signed by: Casper Jacome M.D. 12/30/2019 4:37 PM
--- NOTE | 2019-12-30 16:46 | XRay Report ---
XR calcaneus LT min 2V CLINICAL HISTORY: ulcer; eval for changes of osteomyelitis COMPARISON: None FINDINGS: Note is made of soft tissue swelling with suspected wound overlying the posterior inferior aspect of the left calcaneus. Note is made of a 9 mm lucent focus within the adjacent portion of the calcaneus. No calcaneal fracture is identified. Subtalar joint is intact. IMPRESSION: Left heel wound with soft tissue swelling and a 9 mm lucent focus within the adjacent pos terior inferior aspect of the left calcaneus. Osteomyelitis cannot be excluded. If indicated, an MRI could be obtained. ACT 112: Negative or not required by law. Electronically signed by: Casper Jacome M.D. 12/30/2019 4:45 PM
[2019-12-30] MEDS: WARFARIN SOD 5 MG TAB PO SCH (16:48)
[2019-12-30] MEDS: ALPRAZolam 0.5 MG TABLET PO SCH (21:29)
--- NOTE | 2019-12-30 23:11 | Hospitalist Progress Note ---
Date of Service December 30, 2019 Assessment & Plan (1) Acute DVT (deep venous thrombosis): RLE. Extensive. Would consider this a provoked VTE event. s/p ORIF of right hip fracture late September, followed by considerable immobility since that time. This is in setting of known varicose veins and venous insufficiency. Cont heparin drip. Coumadin initiated yesterday. Could theoretically consider DOAC (eliquis) -- dose would be reduced due to body weight and age. Cont heparin/coumadin for now. no symptoms/signs of PE at this time. (2) Bacteremia: cultures from admission + for GPC clusters. source - suspect the LE ulcers. echo w/o signs of endocarditis. repeat blood cx's today x 2 sets. check sed rate and crp. start vanco IV -- pharmacy to manage dosing. (3) Elevated troponin I level: Myocardial demand-ischemia in setting of VTE, bacteremia, etc. no evidence of ACS. echo results noted. (4) Pressure ulcer of left foot: left heel. start with x-rays of calcaneous. if any worrisome features for osteomyelitis then MRI. float heels with waffle boots. place optifoam on ulceration until wound care nurse can evaluate. cont MVI for wound healing. (5) Venous ulcers of both lower extremities: 2 ulcers right leg and 1 on left heel. ideally needs compression. place feet in waffle boots to offload. x-rays right foot and left heel to r/o signs of early osteomyelitis. wound care consult requested. (6) Paroxysmal atrial fibrillation: Currently in NSR. Continue amiodarone 100mg PO BID (7) Hypothyroidism: Last several TSHs have been all high. Yesterday's TSH 12.5. This suggests either undertreatment with synthroid OR she is noncompliant. Lives with and he helps considerably with her care. Suspect needs adjustment in dose. Increase synthroid to 137.5mcg daily; repeat TSH as outpatient in 6 weeks. (8) Essential tremor: Noted. Not on meds for such. (9) Hypertension: BPs acceptable at this time. Aldactone on hold by prior MD. Follow. 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 BMP in am. (12) Anemia: potentially 2nd to CKD. but check B12, folate, and Fe studies in am to be complete. Admission and Anticipated Discharge Date Admission Date: December 29, 2019 Subjective pt's was at bedside during the visit. he provided much of the history. after her right hip fracture & ORIF in late September she went to rehab. after rehab she returned home with her . she is WBAT to the [facility]. since arriving home she has essentially not walked. picks her up and moves her from the bed to chair, etc. both the pt and ask numerous questions about her DVT. they also comment on the wounds on her legs. she c/o pain over the left heel. Review of Systems Constitutional: no fever Respiratory: no cough and no dyspnea Cardiovascular: no chest pain Integumentary: + non-healing lesions Physical Exam Constitutional: + frail appearing; no acute distress ENMT: external ear and nose normal, oropharynx normal Respiratory: normal respiratory effort, lungs clear to auscultation Cardiovascular: Rate/Rhythm: regular rate and regular rhythm Heart Sounds: normal S1 and normal S2; no murmur Vessels: posterior tibial pulses present and dorsalis pedis pulses present; no JVD Extremities: + edema (<1+ RLE; t race LLE ) and + varicosities (B/l legs, worse RLE ) Gastrointestinal (Abdomen): normal bowel sounds, soft, nontender, no hepatosplenomegaly Skin: 1. well-healed scars present over right lateral hip. 2. 2mm in depth ulceration, about 1cm in diameter, over right lateral foot/ankle. no drainage; minimal erythema. 3. right distal callaway, medial aspect - well-healed, scabbed over linear ulceration. 4. 1mm shallow calcaneal ulceration over left heel. no drainage. Psychiatric: Orientation: alert, oriented to person and oriented to place Results & Data Results & Data ([facility]) Vital Signs (Past 12 Hours) Vital Signs Temp Pulse Pulse Resp BP Pulse Ox 12/30/19 19:00 36.4 C L 71 18 121/69 93 12/30/19 15:17 66 12/30/19 11:33 36.4 C L 60 18 153/65 H 95 Laboratory Results Laboratory Results - last 24 hr 12/29/19 12/30/19 12/30/19 10:41 06:04 06:04 WBC 5.59 RBC 3.23 L Hgb 9.7 L Hct 30.3 L MCV 93.8 MCH 30.0 MCHC 32.0 RDW Std Deviation 53.7 H RDW Coeff of Bret 15.7 H Plt Count 293 MPV 9.1 Immature Gran % (Auto) 0.0 Neut % (Auto) 60.9 Lymph % (Auto) 27.7 [place] % (Auto) 7.5 Eos % (Auto) 3.4 Baso % (Auto) 0.5 Neut # (Auto) 3.40 Lymph # (Auto) 1.55 [place] # (Auto) 0.42 Eos # (Auto) 0.19 Baso # (Auto) 0.03 Immature Gran # (Auto) 0.00 ESR PT 11.1 INR 1.1 APTT 66.4 H* PTT Ratio 2.4 Sodium Potassium Chloride Carbon Dioxide Anion Gap BUN Creatinine Est Cr Clr Drug Dosing Est GFR ( Amer) Est GFR (Non-Af Amer) BUN/Creatinine Ratio Glucose Calcium Troponin I C-Reactive Protein Bld Cult Staph aureus PCR Negative Blood Culture MRSA PCR Negative 12/30/19 12/30/19 12/30/19 06:04 06:09 15:51 WBC RBC Hgb Hct MCV MCH MCHC RDW Std Deviation RDW Coeff of Bret Plt Count MPV Immature Gran % (Auto) Neut % (Auto) Lymph % (Auto) [place] % (Auto) Eos % (Auto) Baso % (Auto) Neut # (Auto) Lymph # (Auto) [place] # (Auto) Eos # (Auto) Baso # (Auto) Immature Gran # (Auto) ESR 27 H PT INR APTT PTT Ratio Sodium 136 Potassium 3.9 Chloride 103 Carbon Dioxide 28 Anion Gap 5.0 BUN 19 H Creatinine 1.17 Est Cr Clr Drug Dosing 28.6 Est GFR ( Amer) 48.9 Est GFR (Non-Af Amer) 42.2 BUN/Creatinine Ratio 16.2 Glucose 88 Calcium 8.7 Troponin I 0.679 H* C-Reactive Protein 1.47 H Bld Cult Staph aureus PCR Blood Culture MRSA PCR blood cx's + for GPC clusters repeat blood cx's pending PG Care Time/CCT Total # of Minutes Spent Total Time Spent with Patient: Total time spent is greater than 50% in coordination of care (as documented) at patient's floor/unit and/or counseling patient: Coding Level of Care Code 01167 Subseq Hosp Care Lvl 3 Diagnoses Acute DVT (deep venous thrombosis) I82.409 Bacteremia R78.81 Elevated troponin I level R77.8 Pressure ulcer of left foot L89.899 Venous ulcers of both lower extremities I83.019; I83.029; L97.919; L97.929 Paroxysmal atrial fibrillation I48.0 Hypothyroidism E03.9 Essential tremor G25.0 Hypertension 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
[2019-12-31] MEDS ORDERED: Nursing to Pharmacy Communication SCH (01:00)
[2019-12-31] MEDS: LEVOTHYROXINE SODIUM 137 MCG TABLET PO SCH (06:13)
[2019-12-31] MEDS ORDERED: LEVOTHYROXINE SODIUM 25 MCG TABLET PO SCH (06:30)
[2019-12-31 06:39] LABS: INR 1.3 (0.9-1.1); Partial Thromboplastin Ratio 2.4; Prothrombin Time 13.2 Seconds (9.0-12.0)
[2019-12-31 06:49] LABS: BUN Creatinine Ratio 18.4 (10-20); Calcium 9.2 mg/dl (8.5-10.1); Creatinine Clr Calc Pharmacy 30.4 ml/min; Est GFR (African American) 52.6; Est GFR (Non-African American) 45.4; Potassium 3.9 mmol/L (3.5-5.1)
[2019-12-31 06:56] LABS: Ferritin 208.2 ng/ml (8-388); Troponin I 0.416 ng/ml (0-0.045)
[2019-12-31 07:06] LABS: Partial Thromboplastin Time 67.5 Seconds (21.0-31.0)
--- NOTE | 2019-12-31 08:04 | Magnetic Resonance Report ---
MR ankle LT wo con CLINICAL HISTORY: Posterior heel wound. Possible osteomyelitis. Abnormal x-ray COMPARISON STUDY: X-ray study dated 12/30/2019 FINDINGS: Images were acquired in the axial, sagittal, and coronal planes. There are no areas of marrow replacement to indicate neoplasm. There are no areas of marrow edema to indicate osteomyelitis. There are no fluid collections to indicate an abscess. There is posterior soft tissue edema. There is no evidence for significant ligamentous disruption or tendon tear. IMPRESSION: 1. Posterior soft tissue edema 2. No evidence of abscess 3. No evidence of osteomyelitis. ACT 112: Negative or not required by law. Electronically signed by: Romario Ng M.D. 12/31/2019 8:03 AM
[2019-12-31] MEDS: ASCORBIC ACID 500 MG TAB PO SCH ×2 (09:26→20:01)
[2019-12-31] MEDS: ADVANCED PROBIOTIC 1250 MG CAPSULE PO SCH (09:26)
[2019-12-31] MEDS: CALCIUM CARBONATE 1250MG TAB PO SCH ×2 (09:27→20:00)
[2019-12-31] MEDS: MULTIVITAMIN TAB PO SCH (09:27)
[2019-12-31] MEDS: AMIODARONE 200 MG TAB PO SCH ×2 (09:27→20:00)
[2019-12-31] MEDS: VITAMIN B COMPLEX TAB PO SCH (09:27)
[2019-12-31] MEDS: TOCOPHERYL, DL-ALPHA 400 UNITS CAP PO SCH (09:27)
[2019-12-31] MEDS: CHOLECALCIFEROL 1,000 UNITS 25 MCG TAB PO SCH (09:27)
[2019-12-31] MEDS: HEPARIN SODIUM/DEXTROSE 25,000 UNITS/500 ML BAG IV SCH (11:44)
[2019-12-31 13:45] LABS: Partial Thromboplastin Ratio 2.7
[2019-12-31 13:49] LABS: Partial Thromboplastin Time 76.3 Seconds (21.0-31.0)
[2019-12-31 14:30] LABS: Folate (Folic Acid) > 24.00 ng/ml (>5.38); Vitamin B12 333 pg/ml (211-911)
--- NOTE | 2019-12-31 14:49 | Pharmacy Report ---
Pharmacy Abx Initial Consult - Date of Service December 31, 2019 - Pharmacy Dosing Scope Date of Consult: 12/30/19 Consultation requested by: Dr. Motta Pharmacy is consulted to initiate Vancomycin IV dosing therapy, order appropriate labs and adjust drug dose/frequency. - Subjective The patient is a 84 year old F admitted on 12/29/19 14:58. - Objective Height: 5 ft 3 in Weight: 54.3 kg Vital Signs (Past 12hrs): Vital Signs Temp Pulse Pulse Resp BP Pulse Ox 12/31/19 11:34 36.5 C 62 18 118/67 96 12/31/19 08:00 65 12/31/19 04:00 36.9 C 66 18 136/72 93 Lab Results (24hrs): Laboratory Tests (24 Hours) 12/31/19 12/30/19 12/30/19 05:36 15:51 06:04 ESR 27 H Creatinine 1.10 Est Cr Clr Drug Dosing 30.4 C-Reactive Protein 1.47 H Micro Results: 12/30/19 15:51 Aerobic Blood Culture - Pending Blood Anaerobic Blood Culture - Pending 12/30/19 16:00 Aerobic Blood Culture - Pending Blood Anaerobic Blood Culture - Pending - Risk Factors for Resistance * Hospitalization for 48 hours or more within the past 90 days * Antimicrobial use within the last 90 days - Cipro use in 11/2019 for pseudomonas UTI. - Assessment & Plan Assessment 84 year old F admitted for R leg cellulitis s/p hip operation in September 2019. Patient currently with bacteremia. Blood cultures from 12/28 growing coag negative Staph. New blood cultures drawn yesterday, results pending. Vancomycin ordered for bacteremia. Plan Vancomycin IV * Estimated PK Parameters: Vd 0.7 L/kg, Matthias 0.028 hr-1, t1/2 ~24 hr * Loading dose: 1250 mg IV x1 dose given yesterday (23 mg/kg) * Maintenance dose: 750 mg IV (14 mg/kg) every 24 hours ordered to start today. * Goal trough level for bacteremia: 15 to 20 mcg/mL * Trough Vanc level ordered for 12/31 before dose at 1600. Pharmacy will continue to follow and will adjust dose/frequency as necessary. Thank you.
[2019-12-31] MEDS ORDERED: VANCOMYCIN HCL 750 MG in SODIUM CHLORIDE 0.9% 250 ML IV SCH (16:00)
[2019-12-31] MEDS: WARFARIN SOD 5 MG TAB PO SCH (16:04)
[2019-12-31] MEDS: CYANOCOBALAMIN 1000 MCG/ML VIAL IM SCH (18:02)
[2019-12-31] MEDS: APIXABAN 5 MG TABLET PO SCH (19:56)
[2019-12-31] MEDS: ACETAMINOPHEN 325 MG TAB PO PRN (19:56)
[2019-12-31] MEDS: ALPRAZolam 0.5 MG TABLET PO SCH (20:00)
--- NOTE | 2019-12-31 20:47 | Hospitalist Progress Note ---
Date of Service December 31, 2019 Assessment & Plan (1) Acute DVT (deep venous thrombosis): RLE. Extensive. Would consider this a provoked VTE event. s/p ORIF of right hip fracture late September, followed by considerable immobility since that time. This is in setting of known varicose veins and venous insufficiency. Spoke with Dr Blakely - preference is that of tam. Thus, stop heparin drip and coumadin. No symptoms/signs of PE at this time. (2) Bacteremia: cultures from admission + for coag negative staph. source - suspect the LE ulcers. echo w/o signs of endocarditis. repeat blood cx's thus far negative. cont vanco IV. MRI left heel w/o osteo. x-rays right foot w/o osteo. (3) Elevated troponin I level: Myocardial demand-ischemia in setting of VTE, bacteremia, etc. no evidence of ACS. echo results noted. (4) Pressure ulcer of left foot: left heel. ~stage 2 (my estimation). x-rays of calcaneous suggested possible osteomyelitis but MRI did not show such. float heels with waffle boots. defer management to wound care team. cont MVI for wound healing. (5) Venous ulcers of both lower extremities: 2 ulcers right leg and 1 on left heel. ideally needs compression. place feet in waffle boots to offload. wound care consult appreciated. (6) Paroxysmal atrial fibrillation: Currently in NSR. Continue amiodarone 100mg PO BID (7) Hypothyroidism: Last several TSHs have been all high. Yesterday's TSH 12.5. This suggests either undertreatment with synthroid OR she is noncompliant. Lives with and he helps considerably with her care. Suspect needs adjustment in dose. Increase synthroid to 137.5mcg daily; repeat TSH as outpatient in 6 weeks. (8) Essential tremor: Noted. Not on meds for such. (9) Hypertension: BPs acceptable at this time. Aldactone on hold. Follow. 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 BMP stable today. repeat BMP am. (12) Anemia: Fe studies wnl. Folate wnl. B12 low normal - B12 1000mcg daily IM while here; then PO supplementation at d/c. (13) JOHN (acute kidney injury): resolved. progressing. PT, OT evals. updated at bedside. Admission and Anticipated Discharge Date Admission Date: December 29, 2019 Subjective no events overnight. pt eating dinner upon arrival. denies any complaints. no dyspnea. no chest pain. no abd pain. at bedside. reviewed plan of care. Review of Systems Constitutional: no fever, no chills and no anorexia Respiratory: no cough and no dyspnea Cardiovascular: no chest pain Gastrointestinal: no abdominal pain, no nausea and no vomiting Physical Exam Constitutional: + frail appearing; no acute distress ENMT: external ear and nose normal, oropharynx normal Respiratory: no respiratory distress Auscultation: + crackles (Bases - fine); no wheezes Cardiovascular: Rate/Rhythm: regular rate and regular rhythm Heart Sounds: normal S1 and normal S2; no murmur Vessels: posterior tibial pulses present and dorsalis pedis pulses present; no JVD Extremities: + edema (<1+ RLE; trace LLE ) Gastrointestinal (Abdomen): normal bowel sounds, soft, nontender, no hepatosplenomegaly Skin: all ulcers covered with dressings - deferred on examining these today Psychiatric: Orientation: alert, oriented to person and oriented to place Results & Data Results & Data ([facility]) Vital Signs (Past 12 Hours) Vital Signs Temp Pulse Pulse Resp BP BP Pulse Ox 12/31/19 19:54 36.9 C 71 18 136/67 93 12/31/19 16:28 68 12/31/19 15:40 36.7 C 65 18 125/65 95 12/31/19 11:34 36.5 C 62 18 118/67 96 Laboratory Results Laboratory Results - last 24 hr 12/31/19 12/31/19 12/31/19 05:36 05:36 05:36 PT 13.2 H INR 1.3 H APTT 67.5 H* PTT Ratio 2.4 Sodium 135 L Potassium 3.9 Chloride 104 Carbon Dioxide 26 Anion Gap 6.0 BUN 20 H Creatinine 1.10 Est Cr Clr Drug Dosing 30.4 Est GFR ( Amer) 52.6 Est GFR (Non-Af Amer) 45.4 BUN/Creatinine Ratio 18.4 Glucose 86 Calcium 9.2 Iron 39 Transferrin 138 L Transferrin % Sat 20 Ferritin 208.2 Troponin I 0.416 H* Vitamin B12 333 Folate > 24.00 12/31/19 13:04 PT INR APTT 76.3 H* PTT Ratio 2.7 Sodium Potassium Chloride Carbon Dioxide Anion Gap BUN Creatinine Est Cr Clr Drug Dosing Est GFR ( Amer) Est GFR (Non-Af Amer) BUN/Creatinine Ratio Glucose Calcium Iron Transferrin Transferrin % Sat Ferritin Troponin I Vitamin B12 Folate PG Care Time/CCT Total # of Minutes Spent Total Time Spent with Patient: Total time spent is greater than 50% in coordination of care (as documented) at patient's floor/unit and/or counseling patient: Coding Level of Care Code 62334 Subseq Hosp Care Lvl 3 Diagnoses Acute DVT (deep venous thrombosis) I82.409 Bacteremia R78.81 Elevated troponin I level R77.8 Pressure ulcer of left foot L89.899 Venous ulcers of both lower extremities I83.019; I83.029; L97.919; L97.929 Paroxysmal atrial fibrillation I48.0 Hypothyroidism E03.9 Essential tremor G25.0 Hypertension 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
[2019-12-31] MEDS ORDERED: APIXABAN 5 MG TABLET PO SCH (21:00)
[2020-01-01] MEDS: LEVOTHYROXINE SODIUM 137 MCG TABLET PO SCH (05:34)
[2020-01-01] MEDS: ADVANCED PROBIOTIC 1250 MG CAPSULE PO SCH (08:57)
[2020-01-01] MEDS: VITAMIN B COMPLEX TAB PO SCH (08:57)
[2020-01-01] MEDS: TOCOPHERYL, DL-ALPHA 400 UNITS CAP PO SCH (08:57)
[2020-01-01] MEDS: MULTIVITAMIN TAB PO SCH (08:57)
[2020-01-01] MEDS: APIXABAN 5 MG TABLET PO SCH ×2 (08:58→19:49)
[2020-01-01] MEDS: ASCORBIC ACID 500 MG TAB PO SCH ×2 (08:58→19:49)
[2020-01-01] MEDS: CHOLECALCIFEROL 1,000 UNITS 25 MCG TAB PO SCH (08:58)
[2020-01-01] MEDS: CYANOCOBALAMIN 1000 MCG/ML VIAL IM SCH (08:58)
[2020-01-01] MEDS: AMIODARONE 200 MG TAB PO SCH ×2 (08:59→19:48)
[2020-01-01] MEDS: CALCIUM CARBONATE 1250MG TAB PO SCH ×2 (08:59→19:51)
[2020-01-01 09:01] LABS: Basophils # (auto) 0.03 K/uL (0-0.2); Basophils % (auto) 0.5 %; Eosinophils # (auto) 0.31 K/uL (0-0.5); Eosinophils % (auto) 4.7 %; Hematocrit (blood only) 31.2 % (37-47); Immature Granulocytes # (auto) 0.01 K/uL (0.00-0.02); Immature Granulocytes % (auto) 0.2 %; Lymphocytes # (auto) 1.01 K/uL (1.2-3.4); Lymphocytes % (auto) 15.4 %; Mean Corpuscular Hgb Conc 32.1 g/dL (32-36); Mean Corpuscular Volume 93.7 fL (80-100); Mean Platelet Volume 9.5 fL (7.4-10.4); Monocytes # (auto) 0.36 K/uL (0.11-0.59); Monocytes % (auto) 5.5 %; Neutrophils # (auto) 4.83 K/uL (1.4-6.5); Neutrophils % (auto) 73.7 %; Platelet Count 301 K/uL (130-400); RDW Coefficient of Variation 15.7 % (11.5-14.5); RDW Standard Deviation 54.3 fL (36.4-46.3); Red Blood Count 3.33 M/uL (4.2-5.4); White Blood Count 6.55 K/uL (4.8-10.8)
[2020-01-01 09:18] LABS: BUN Creatinine Ratio 19.5 (10-20); Creatinine Clr Calc Pharmacy 32.7 ml/min; Est GFR (African American) 57.7; Est GFR (Non-African American) 49.8
[2020-01-01] MEDS ORDERED: VANCOMYCIN TROUGH ONE (15:30)
[2020-01-01] MEDS: ceFAZolin 1000MG 1,000 MG/7.5 ML SYR IV SCH (17:38)
[2020-01-01] MEDS: ALPRAZolam 0.5 MG TABLET PO SCH (19:49)
--- NOTE | 2020-01-01 23:15 | Hospitalist Progress Note ---
Date of Service January 01, 2020 Assessment & Plan (1) Acute DVT (deep venous thrombosis): RLE. Extensive. Provoked VTE event. s/p ORIF of right hip fracture late September, followed by considerable immobility since that time. This is in setting of known varicose veins and venous insufficiency. Spoke with Dr Blakely - preference is that of eliquis. Heparin/coumadin stopped yesterday. Started eliquis 10mg BID x 1 week, then 5mg BID thereafter. No clinical evidence of PE(s) at this time. (2) Bacteremia: coag negative staph. 4/4 bottles from admission. repeat cultures from 12/30/19 negative. source - suspect the LE ulcers. echo w/o signs of endocarditis. spoke with pharmacy - d/c vanco, change to IV ancef. MRI left heel w/o osteo. x-rays right foot w/o osteo. Will consult [facility] to determine length of therapy (at least 14 days, I suspect) and if we can change to PO at any point. (3) Elevated troponin I level: Myocardial demand-ischemia in setting of VTE, bacteremia, etc. no evidence of ACS. echo results noted. (4) Pressure ulcer of left foot: left heel. ~stage 2 (my estimation). x-rays of calcaneous suggested possible osteomyelitis but MRI did not show such. float heels with waffle boots. appreciate wound care recs. cont MVI for wound healing. (5) Venous ulcers of both lower extremities: 2 ulcers right leg and [address] feet in waffle boots to offload. wound care consult appreciated. (6) Paroxysmal atrial fibrillation: Currently in NSR. Continue amiodarone 100mg PO BID. can d/c tele today. (7) Hypothyroidism: Last several TSHs have been all high. This admission's TSH 12.5. This suggests either undertreatment with synthroid OR she is noncompliant. Lives with and he helps considerably with her care. Suspect needs adjustment in dose. Increase synthroid to 137.5mcg daily; repeat TSH as outpatient in 6 weeks. (8) Essential tremor: Noted. Not on meds for such. (9) Hypertension: BPs acceptable at this time. Cont to hold Aldactone. 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 BMP again stable today. repeat BMP am. (12) Anemia: Fe studies wnl. Folate wnl. B12 low normal - B12 1000mcg daily IM while here; then PO supplementation at d/c. (13) JOHN (acute kidney injury): resolved. progressing nicely. await ID consult. lengthy discussion with pt and her about goals of care, chances of regaining ability to walk again, Home with HH vs SNF for rehab, etc. No desire for [facility]. Cont plan for home with HH. DNR dispo planning Admission and Anticipated Discharge Date Admission Date: December 29, 2019 Subjective tele normal overnight. no events. feeling good. swelling in RLE is improved. denies pain any location. eating fair. we had a very lengthy discussion about home with HH vs rehab. mentioned that rehab was being advised by therapy. she and both want home with HH although patient stated her goal is "I want to walk again." feels he can still adequately care for her. of note - he has to lift her up with his own hands for transfers. he also mentions they have hired private duty nursing and that person comes on most days. Review of Systems Constitutional: no fever and no chills Respiratory: no cough and no dyspnea Cardiovascular: no chest pain Gastrointestinal: no abdominal pain, no nausea and no vomiting Physical Exam Constitutional: + frail appearing; no acute distress ENMT: external ear and nose normal, oropharynx normal Respiratory: normal respiratory effort, lungs clear to auscultation no respiratory distress Auscultation: + crackles (Bases - fine - minimal ); no wheezes Cardiovascular: Rate/Rhythm: regular rate and regular rhythm Heart Sounds: normal S1 and normal S2; no murmur Vessels: posterior tibial pulses present and dorsalis pedis pulses present; no JVD Extremities: + edema (trace RLE; none on left ) Gastrointestinal (Abdomen): normal bowel sounds, soft, nontender, no hepatosplenomegaly Psychiatric: Orientation: alert, oriented to person, oriented to place and oriented to time Results & Data Results & Data ([place]) Vital Signs (Past 12 Hours) Vital Signs Temp Pulse Pulse Resp BP BP Pulse Ox 01/01/20 19:47 36.8 C 75 18 143/72 H 96 01/01/20 16:00 67 01/01/20 15:20 36.8 C 63 18 138/72 95 01/01/20 11:30 36.4 C L 63 18 127/66 98 Laboratory Results Laboratory Results - last 24 hr 01/01/20 01/01/20 08:07 08:07 WBC 6.55 RBC 3.33 L Hgb 10.0 L Hct 31.2 L MCV 93.7 MCH 30.0 MCHC 32.1 RDW Std Deviation 54.3 H RDW Coeff of Bret 15.7 H Plt Count 301 MPV 9.5 Immature Gran % (Auto) 0.2 Neut % (Auto) 73.7 Lymph % (Auto) 15.4 [place] % (Auto) 5.5 Eos % (Auto) 4.7 Baso % (Auto) 0.5 Neut # (Auto) 4.83 Lymph # (Auto) 1.01 L [place] # (Auto) 0.36 Eos # (Auto) 0.31 Baso # (Auto) 0.03 Immature Gran # (Auto) 0.01 Sodium 136 Potassium 4.0 Chloride 103 Carbon Dioxide 28 Anion Gap 5.0 BUN 20 H Creatinine 1.02 Est Cr Clr Drug Dosing 32.7 Est GFR ( Amer) 57.7 Est GFR (Non-Af Amer) 49.8 BUN/Creatinine Ratio 19.5 Glucose 77 Calcium 9.0 PG Care Time/CCT Total # of Minutes Spent Total Time Spent with Patient: Total time spent is greater than 50% in coordination of care (as documented) at patient's floor/unit and/or counseling patient: Coding Level of Care Code 70716 Subseq Hosp Care Lvl 3 Diagnoses Acute DVT (deep venous thrombosis) I82.409 Bacteremia R78.81 Elevated troponin I level R77.8 Pressure ulcer of left foot L89.899 Venous ulcers of both lower extremities I83.019; I83.029; L97.919; L97.929 Paroxysmal atrial fibrillation I48.0 Hypothyroidism E03.9 Essential tremor G25.0 Hypertension 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
[2020-01-02] MEDS: ceFAZolin 1000MG 1,000 MG/7.5 ML SYR IV SCH ×2 (03:00→16:03)
[2020-01-02] MEDS: LEVOTHYROXINE SODIUM 137 MCG TABLET PO SCH (05:03)
[2020-01-02 07:20] LABS: BUN Creatinine Ratio 18.6 (10-20); Calcium 9.2 mg/dl (8.5-10.1); Creatinine Clr Calc Pharmacy 33.7 ml/min; Est GFR (African American) 59.8; Est GFR (Non-African American) 51.6; Magnesium 1.8 mg/dl (1.8-2.4); Potassium 3.8 mmol/L (3.5-5.1)
[2020-01-02] MEDS: AMIODARONE 200 MG TAB PO SCH ×2 (08:11→21:23)
[2020-01-02] MEDS: APIXABAN 5 MG TABLET PO SCH ×2 (08:12→21:22)
[2020-01-02] MEDS: TOCOPHERYL, DL-ALPHA 400 UNITS CAP PO SCH (08:13)
[2020-01-02] MEDS: CALCIUM CARBONATE 1250MG TAB PO SCH ×2 (08:13→21:23)
[2020-01-02] MEDS: CHOLECALCIFEROL 1,000 UNITS 25 MCG TAB PO SCH (08:13)
[2020-01-02] MEDS: MULTIVITAMIN TAB PO SCH (08:13)
[2020-01-02] MEDS: ADVANCED PROBIOTIC 1250 MG CAPSULE PO SCH (08:14)
[2020-01-02] MEDS: ASCORBIC ACID 500 MG TAB PO SCH ×2 (08:14→21:23)
[2020-01-02] MEDS: VITAMIN B COMPLEX TAB PO SCH (08:14)
[2020-01-02] MEDS: CYANOCOBALAMIN 1000 MCG/ML VIAL IM SCH (08:15)
[2020-01-02] MEDS: POLYETHYLENE (MIRALAX) 17 GM PACK PO SCH (10:58)
[2020-01-02] MEDS: SENNA 8.6 MG TAB PO SCH (10:58)
--- NOTE | 2020-01-02 17:51 | CT Scan Report ---
RIGHT ANKLE CT CT DOSE: 215.64 mGy.cm HISTORY: Right lateral malleolus ulceration; eval for osteomyelitis TECHNIQUE: Multiaxial CT images of the right ankle were performed and reformatted in the sagittal and coronal plane without the use of contrast. A dose lowering technique was utilized adhering to the p rinciples of SINCERE. COMPARISON: Right foot 12/30/2019. FINDINGS: No acute fracture or dislocation within the right ankle or hindfoot. Diffuse subcutaneous e nicole throughout the ankle and hindfoot. There is skin thickening seen along the lateral aspect of the right ankle. No underlying bony destruction to suggest osteomyelitis. Vascular calcifications are no joel. Atrophy of the right ankle and hindfoot muscles are noted. The extensor, flexor, peroneal, and A chilles tendons appear intact. No loculated fluid collections on this noncontrast study to suggest an abscess. [id number] osteoarthritis of the tibiotalar joint. IMPRESSION: 1. No CT evidence for osteomyelitis within the right ankle. 2. Diffuse subcutaneous edema. 3. Skin thickening seen along the lateral ankle. ACT 112: Negative or not required by law. Electronically signed by: Khoi Culver M.D. 01/02/2020 5:49 PM
[2020-01-02] MEDS: ALPRAZolam 0.5 MG TABLET PO SCH (21:23)
[2020-01-02] MEDS: ACETAMINOPHEN 325 MG TAB PO PRN (21:24)
--- NOTE | 2020-01-02 23:27 | Hospitalist Progress Note ---
Date of Service January 02, 2020 Assessment & Plan (1) Acute DVT (deep venous thrombosis): RLE. Extensive. Provoked VTE event. s/p ORIF of right hip fracture late September, followed by considerable immobility since that time. This is in setting of known varicose veins and venous insufficiency. Spoke with Dr Blakely - preference is that of eliquis. Cont eliquis 10mg BID x 1 week, then 5mg BID thereafter. First day of eliquis was evening of 12/30/19. No clinical evidence of PE(s) at this time. Plan at least 6 months of Rx. However, given the severe extent of clot in the leg, may need indefinite. (2) Bacteremia: coag negative staph. 4/4 bottles from admission. repeat cultures from 12/30/19 negative. source - suspect the LE ulcers. echo w/o signs of endocarditis. continue IV ancef. MRI left heel w/o osteo. x-rays right foot w/o osteo. [facility] ID consult completed. They recommend imaging of right leg. Obtained right ankle CT- no evidence of osteomyelitis. May need imaging of right hip as well. If imaging negative - then 2 weeks IV ancef from date of 12/29 negative cultures. (3) Elevated troponin I level: Myocardial demand-ischemia in setting of VTE, bacteremia, etc. no evidence of ACS. echo results noted. (4) Pressure ulcer of left foot: left heel. ~stage 2 (my estimation). x-rays of calcaneous suggested possible osteomyelitis but MRI did not show such. float heels with waffle boots. appreciate wound care recs. cont MVI for wound healing. (5) Venous ulcers of both lower extremities: Ulcer on right lateral ankle, 1 ulcer left callaway, and [address] feet in waffle boots to offload. wound care consult appreciated. ulcers stable. (6) Paroxysmal atrial fibrillation: Was in NSR during entire time while on telemetry. Continue amiodarone 100mg PO BID. (7) Hypothyroidism: Last several TSHs have been all high. This admission's TSH 12.5. This suggests either undertreatment with synthroid OR she is noncompliant. Lives with and he helps considerably with her care. Suspect needs adjustment in dose. Increase synthroid to 137.5mcg daily; repeat TSH as outpatient in 6 weeks. (8) Essential tremor: Noted. Not on meds for such. (9) Hypertension: BPs acceptable at this time. Cont to hold Aldactone. 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 BMP again stable today. repeat BMP am. (12) Anemia: Fe studies wnl. Folate wnl. B12 low normal - B12 1000mcg daily IM while here; then PO supplementation at d/c. (13) JOHN (acute kidney injury): resolved. progressing. lengthy discussion with pt and her about goals of care, chances of regaining ability to walk again, Home with HH vs SNF for rehab, etc. No desire for [facility]. Cont plan for home with HH. DNR hopefully home this weekend?? Admission and Anticipated Discharge Date Admission Date: December 29, 2019 Subjective patient without any complaints during the visit. feeling good. at bedside similar to past visits. stated "she's eating 3x's better than what she eats at home." patient just completed her [employer] telehealth consult. no new issues overnight. Review of Systems Constitutional: no fever, no chills, no fatigue and no anorexia Respiratory: no dyspnea Cardiovascular: no chest pain Gastrointestinal: no abdominal pain, no nausea and no diarrhea/loose stools Physical Exam Constitutional: + thin and + frail appearing; no acute distress ENMT: external ear and nose normal, oropharynx normal Respiratory: no respiratory distress Auscultation: + crackles (Bases - fine - minimal; no change from prior exam); no wheezes Cardiovascular: Rate/Rhythm: regular rate and regular rhythm Heart Sounds: normal S1 and normal S2; no murmur Vessels: posterior tibial pulses present and dorsalis pedis pulses present; no JVD Extremities: + edema (trace RLE; none on left ) Gastrointestinal (Abdomen): normal bowel sounds, soft, nontender, no hepatosplenomegaly Skin: right ankle, lateral malleolus area -- 0.5cm ulceration with overlying dried drainage/scab; no erythema. left foot - calcaneal ulcer with overlying scab; nontender, no erythema. left callaway - irregular vertical wound, aquacel silver in place, no drainage or erythema. Psychiatric: Orientation: alert, oriented to person, oriented to place and oriented to time Results & Data Results & Data ([facility]) Vital Signs (Past 12 Hours) Vital Signs Temp Pulse Resp BP Pulse Ox 01/02/20 15:58 36.7 C 72 20 130/69 96 Laboratory Results Laboratory Results - last 24 hr 01/02/20 06:06 Sodium 135 L Potassium 3.8 Chloride 102 Carbon Dioxide 28 Anion Gap 5.0 BUN 18 Creatinine 0.99 Est Cr Clr Drug Dosing 33.7 Est GFR ( Amer) 59.8 Est GFR (Non-Af Amer) 51.6 BUN/Creatinine Ratio 18.6 Glucose 87 Calcium 9.2 Magnesium 1.8 repeat blood cultures 12/29 negative to date PG Care Time/CCT Total # of Minutes Spent Total Time Spent with Patient: Total time spent is greater than 50% in coordination of care (as documented) at patient's floor/unit and/or counseling patient: Coding Level of Care Code 77206 Subseq Hosp Care Lvl 2 Diagnoses Acute DVT (deep venous thrombosis) I82.409 Bacteremia R78.81 Elevated troponin I level R77.8 Pressure ulcer of left foot L89.899 Venous ulcers of both lower extremities I83.019; I83.029; L97.919; L97.929 Paroxysmal atrial fibrillation I48.0 Hypothyroidism E03.9 Essential tremor G25.0 Hypertension 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
[2020-01-03] MEDS: ceFAZolin 1000MG 1,000 MG/7.5 ML SYR IV SCH ×2 (03:52→15:41)
[2020-01-03] MEDS: LEVOTHYROXINE SODIUM 137 MCG TABLET PO SCH (06:34)
[2020-01-03 07:39] LABS: BUN Creatinine Ratio 21.5 (10-20); Calcium 9.2 mg/dl (8.5-10.1); Est GFR (African American) 52.1; Est GFR (Non-African American) 44.9
[2020-01-03] MEDS: ASCORBIC ACID 500 MG TAB PO SCH ×2 (07:57→20:45)
[2020-01-03] MEDS: CHOLECALCIFEROL 1,000 UNITS 25 MCG TAB PO SCH (07:58)
[2020-01-03] MEDS: ADVANCED PROBIOTIC 1250 MG CAPSULE PO SCH (07:58)
[2020-01-03] MEDS: TOCOPHERYL, DL-ALPHA 400 UNITS CAP PO SCH (07:58)
[2020-01-03] MEDS: MULTIVITAMIN TAB PO SCH (07:58)
[2020-01-03] MEDS: APIXABAN 5 MG TABLET PO SCH ×2 (07:59→20:47)
[2020-01-03] MEDS: VITAMIN B COMPLEX TAB PO SCH (07:59)
[2020-01-03] MEDS: SENNA 8.6 MG TAB PO SCH (07:59)
[2020-01-03] MEDS: CYANOCOBALAMIN 1000 MCG/ML VIAL IM SCH (08:00)
[2020-01-03] MEDS: AMIODARONE 200 MG TAB PO SCH ×2 (08:00→20:44)
[2020-01-03] MEDS: CALCIUM CARBONATE 1250MG TAB PO SCH ×2 (08:01→20:46)
[2020-01-03] MEDS: POLYETHYLENE (MIRALAX) 17 GM PACK PO SCH (09:49)
--- NOTE | 2020-01-03 16:05 | Hospitalist Progress Note ---
Date of Service January 03, 2020 Assessment & Plan (1) Acute DVT (deep venous thrombosis): RLE. Extensive. Provoked VTE event. s/p ORIF of right hip fracture late September, followed by considerable immobility since that time. This is in setting of known varicose veins and venous insufficiency. Spoke with Dr Blakely - preference is that of eliquis. Cont eliquis 10mg BID x 1 week, then 5mg BID thereafter. First day of eliquis was evening of 12/30/19. No clinical evidence of PE(s) at this time. Plan at least 6 months of Rx. However, given the severe extent of clot in the leg, may need indefinite. (2) Bacteremia: coag negative staph. 4/4 bottles from admission. repeat cultures from 12/30/19 negative. source - suspect the LE ulcers. echo w/o signs of endocarditis. continue IV ancef. MRI left heel w/o osteo. CT and x-rays right foot w/o osteo. - Will get CT hip of right hip given the hardware there. - If imaging negative - then 2 weeks IV Ancef from date of 12/29 negative cultures. (3) Elevated troponin I level: Myocardial demand-ischemia in setting of VTE, bacteremia, etc. no evidence of ACS. echo results noted. (4) Pressure ulcer of left foot: left heel. ~stage 2 (my estimation). x-rays of calcaneous suggested possible osteomyelitis but MRI did not show such. float heels with waffle boots. appreciate wound care recs. cont MVI for wound healing. (5) Venous ulcers of both lower extremities: Ulcer on right lateral ankle, 1 ulcer left callaway, and [address] feet in waffle boots to offload. wound care consult appreciated. ulcers stable. (6) Paroxysmal atrial fibrillation: Was in NSR during entire time while on telemetry. Continue amiodarone 100mg PO BID. (7) Hypothyroidism: Last several TSHs have been all high. This admission's TSH 12.5. This suggests either undertreatment with synthroid OR she is non-compliant. Lives with and he helps considerably with her care. Suspect needs adjustment in dose. - Increased Synthroid to 137.5mcg daily; repeat TSH as outpatient in 6 weeks. (8) Essential tremor: Noted. Not on meds for such. (9) Hypertension: BPs acceptable at this time. Presently 145/70. - Cont to hold Aldactone. 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 - BMP again stable today. Cr is 1.1. (12) Anemia: Fe studies wnl. Folate wnl. B12 low normal - B12 1000mcg daily IM while here; then PO supplementation at d/c. Admission and Anticipated Discharge Date Admission Date: December 29, 2019 Subjective Doing well today. Very much wants to go home. Reports no fevers/chills, chest pain, shortness of breath, abdominal pain, nausea, or vomiting. Physical Exam Constitutional: WD/WN, vitals as above Eyes: EOM intact bilaterally; no conjunctival abnormality ENMT: external ear and nose normal, oropharynx normal Neck: trachea midline, no thyromegaly normal visual inspection Respiratory: normal respiratory effort, lungs clear to auscultation no respiratory distress Cardiovascular: RRR, no murmur, no edema Gastrointestinal (Abdomen): Inspection/Auscultation: abdomen normal to inspection; abdomen not distended Musculoskeletal: no cyanosis or clubbing, extremities motor strength 5/5 Skin: no rashes, warm and dry Neurologic: moves all extremities and awake Psychiatric: Orientation: alert, oriented to person and cooperative Results & Data Results & Data ([facility]) Vital Signs (Past 12 Hours) Vital Signs Temp Pulse Resp BP Pulse Ox 01/03/20 08:24 36.5 C 64 16 143/69 H 94 PG Care Time/CCT Total # of Minutes Spent Total Time Spent with Patient: Total time spent is greater than 50% in coordination of care (as documented) at patient's floor/unit and/or counseling patient: Coding Level of Care Code 97885 Subseq Hosp Care Lvl 2 Diagnoses Acute DVT (deep venous thrombosis) I82.409 Bacteremia R78.81 Elevated troponin I level R77.8 Pressure ulcer of left foot L89.899 Venous ulcers of both lower extremities I83.019; I83.029; L97.919; L97.929 Paroxysmal atrial fibrillation I48.0 Hypothyroidism E03.9 Essential tremor G25.0 Hypertension 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
--- NOTE | 2020-01-03 17:11 | CT Scan Report ---
CT OF THE RIGHT HIP WITHOUT CONTRAST CLINICAL HISTORY: Bacteremia; hardware COMPARISON STUDY: CT of the abdomen and pelvis May 03, 2013. Right femur radiographs November 20, 2019. TECHNIQUE: Axial images of the right hip were obtained without IV contrast. Sagittal and coronal vinnie nstructions were viewed. Automated exposure control was utilized for the study. A dose lowering tech nique was utilized adhering to the principles of ALARA. FINDINGS: Alignment of the subtrochanteric fracture of the right femur status post internal fixation with trochanteric nail is similar to radiographs of November 20, 2019. Fracture is incompletely heal ed. Callus formation is noted. A portion of the lesser trochanter remains displaced. This is unchange d. No acute fracture is identified. Visualized portions of the hardware are intact. Old right pubic r ing fractures are noted. Note is made of moderate subcutaneous infiltration and fluid of the right th igh. No fluid collection is identified on this unenhanced examination. There is no CT evidence for os teomyelitis. Evaluation is compromised by streak artifact from the hardware. IMPRESSION: 1. No change in alignment of the subtrochanteric fracture of the right femur status post internal fix ation with trochanteric nail since radiographs of November 20, 2019. Partial interval healing of the fracture. Visualized portions of hardware intact. 2. Moderate subcutaneous infiltration of the right thigh. This could reflect edema or cellulitis. No fluid collection to suggest abscess. No evidence for osteomyelitis by CT. ACT 112: Negative or not required by law. Electronically signed by: Casper Jacome M.D. 01/03/2020 5:10 PM
[2020-01-03] MEDS: ALPRAZolam 0.5 MG TABLET PO SCH (20:45)
[2020-01-04] MEDS: ceFAZolin 1000MG 1,000 MG/7.5 ML SYR IV SCH ×3 (03:46→22:25)
[2020-01-04 06:09] LABS: Hematocrit (blood only) 31.2 % (37-47); Hemoglobin 10.1 g/dL (12.0-16.0); Mean Corpuscular Hemoglobin 30.6 pg (25-34); Mean Corpuscular Hgb Conc 32.4 g/dL (32-36); Mean Corpuscular Volume 94.5 fL (80-100); Mean Platelet Volume 9.7 fL (7.4-10.4); Platelet Count 342 K/uL (130-400); RDW Coefficient of Variation 15.8 % (11.5-14.5); RDW Standard Deviation 55.3 fL (36.4-46.3); White Blood Count 6.46 K/uL (4.8-10.8)
[2020-01-04 06:44] LABS: BUN Creatinine Ratio 28.2 (10-20); Creatinine Clr Calc Pharmacy 35.9 ml/min; Est GFR (African American) 64.5; Est GFR (Non-African American) 55.6; Magnesium 1.8 mg/dl (1.8-2.4); Potassium 3.8 mmol/L (3.5-5.1)
[2020-01-04] MEDS: LEVOTHYROXINE SODIUM 137 MCG TABLET PO SCH (06:50)
[2020-01-04] MEDS: SENNA 8.6 MG TAB PO SCH (08:20)
[2020-01-04] MEDS: ADVANCED PROBIOTIC 1250 MG CAPSULE PO SCH (08:20)
[2020-01-04] MEDS: CHOLECALCIFEROL 1,000 UNITS 25 MCG TAB PO SCH (08:21)
[2020-01-04] MEDS: MULTIVITAMIN TAB PO SCH (08:21)
[2020-01-04] MEDS: VITAMIN B COMPLEX TAB PO SCH (08:21)
[2020-01-04] MEDS: TOCOPHERYL, DL-ALPHA 400 UNITS CAP PO SCH (08:21)
[2020-01-04] MEDS: CALCIUM CARBONATE 1250MG TAB PO SCH ×2 (08:22→22:12)
[2020-01-04] MEDS: AMIODARONE 200 MG TAB PO SCH ×2 (08:22→22:11)
[2020-01-04] MEDS: CYANOCOBALAMIN 1000 MCG/ML VIAL IM SCH (08:25)
[2020-01-04] MEDS: APIXABAN 5 MG TABLET PO SCH ×2 (08:25→22:10)
[2020-01-04] MEDS: ASCORBIC ACID 500 MG TAB PO SCH ×2 (08:25→22:12)
[2020-01-04] MEDS: POLYETHYLENE (MIRALAX) 17 GM PACK PO SCH (09:18)
--- NOTE | 2020-01-04 17:03 | Hospitalist Progress Note ---
Date of Service January 04, 2020 Assessment & Plan (1) Acute DVT (deep venous thrombosis): RLE. Extensive. Provoked VTE event. s/p ORIF of right hip fracture late September, followed by considerable immobility since that time. This is in setting of known varicose veins and venous insufficiency. Spoke with Dr Blakely - preference is that of eliquis. Cont eliquis 10mg BID x 1 week, then 5mg BID thereafter. First day of eliquis was evening of 12/30/19. No clinical evidence of PE(s) at this time. Plan at least 6 months of Rx. However, given the severe extent of clot in the leg, may need indefinite. Stable today. No hemodynamic compromise. (2) Bacteremia: coag negative staph. 4/4 bottles from admission. repeat cultures from 12/30/19 negative. source - suspect the LE ulcers. echo w/o signs of endocarditis. continue IV ancef. MRI left heel w/o osteo. CT and x-rays right foot w/o osteo. CT hip of right hip was also normal. - If imaging negative - then 2 weeks IV Ancef from date of 12/29 negative cultures. - Will plan for cefazolin x 2 weeks total. (3) Elevated troponin I level: Myocardial demand-ischemia in setting of VTE, bacteremia, etc. no evidence of ACS. echo results noted. (4) Pressure ulcer of left foot: left heel. ~stage 2 (my estimation). x-rays of calcaneous suggested possible osteomyelitis but MRI did not show such. float heels with waffle boots. appreciate wound care recs. cont MVI for wound healing. (5) Venous ulcers of both lower extremities: Ulcer on right lateral ankle, 1 ulcer left callaway, and [address] feet in waffle boots to offload. wound care consult appreciated. ulcers stable. (6) Paroxysmal atrial fibrillation: Was in NSR during entire time while on telemetry. Continue amiodarone 100mg PO BID. (7) Hypothyroidism: Last several TSHs have been all high. This admission's TSH 12.5. This suggests either undertreatment with synthroid OR she is non-compliant. Lives with and he helps considerably with her care. Suspect needs adjustment in dose. - Increased Synthroid to 137.5mcg daily; repeat TSH as outpatient in 6 weeks. (8) Essential tremor: Noted. Not on meds for such. (9) Hypertension: BPs acceptable at this time. Presently 145/70. - Cont to hold Aldactone. 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 - BMP again stable today. Cr is 1.1. (12) Anemia: Fe studies wnl. Folate wnl. B12 low normal - B12 1000mcg daily IM while here; then PO supplementation at d/c. Admission and Anticipated Discharge Date Admission Date: December 29, 2019 Subjective No complaints today. Feeling well. Would like to go home. Reports no fevers/chills, chest pain, shortness of breath, abdominal pain, nausea, or vomiting. Physical Exam Constitutional: WD/WN, vitals as above Eyes: EOM intact bilaterally; no conjunctival abnormality ENMT: external ear and nose normal, oropharynx normal Neck: trachea midline, no thyromegaly normal visual inspection Respiratory: normal respiratory effort, lungs clear to auscultation no respiratory distress Cardiovascular: RRR, no murmur, no edema Gastrointestinal (Abdomen): Inspection/Auscultation: abdomen normal to inspection; abdomen not distended Musculoskeletal: no cyanosis or clubbing, extremities motor strength 5/5 Skin: no rashes, warm and dry Neurologic: moves all extremities and awake Psychiatric: Orientation: alert, oriented to person and cooperative Results & Data Results & Data ([facility]) Vital Signs (Past 12 Hours) Vital Signs Temp Pulse Resp BP Pulse Ox 01/04/20 15:59 36.9 C 66 18 144/72 H 95 PG Care Time/CCT Total # of Minutes Spent Total Time Spent with Patient: Total time spent is greater than 50% in coordination of care (as documented) at patient's floor/unit and/or counseling patient: Coding Level of Care Code 85156 Subseq Hosp Care Lvl 2 Diagnoses Acute DVT (deep venous thrombosis) I82.409 Bacteremia R78.81 Elevated troponin I level R77.8 Pressure ulcer of left foot L89.899 Venous ulcers of both lower extremities I83.019; I83.029; L97.919; L97.929 Paroxysmal atrial fibrillation I48.0 Hypothyroidism E03.9 Essential tremor G25.0 Hypertension 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
[2020-01-04] MEDS: ALPRAZolam 0.5 MG TABLET PO SCH (22:10)
[2020-01-05] MEDS: ceFAZolin 1000MG 1,000 MG/7.5 ML SYR IV SCH (06:33)
[2020-01-05] MEDS: LEVOTHYROXINE SODIUM 137 MCG TABLET PO SCH (06:34)
[2020-01-05] MEDS: TOCOPHERYL, DL-ALPHA 400 UNITS CAP PO SCH (08:37)
[2020-01-05] MEDS: ADVANCED PROBIOTIC 1250 MG CAPSULE PO SCH (08:37)
[2020-01-05] MEDS: CALCIUM CARBONATE 1250MG TAB PO SCH (08:37)
[2020-01-05] MEDS: APIXABAN 5 MG TABLET PO SCH (08:37)
[2020-01-05] MEDS: CHOLECALCIFEROL 1,000 UNITS 25 MCG TAB PO SCH (08:37)
[2020-01-05] MEDS: AMIODARONE 200 MG TAB PO SCH (08:38)
[2020-01-05] MEDS: SENNA 8.6 MG TAB PO SCH (08:38)
[2020-01-05] MEDS: VITAMIN B COMPLEX TAB PO SCH (08:38)
[2020-01-05] MEDS: MULTIVITAMIN TAB PO SCH (08:38)
[2020-01-05] MEDS: POLYETHYLENE (MIRALAX) 17 GM PACK PO SCH (08:39)
[2020-01-05] MEDS: CYANOCOBALAMIN 1000 MCG/ML VIAL IM SCH (08:39)
[2020-01-05] MEDS: ASCORBIC ACID 500 MG TAB PO SCH (08:39)
--- NOTE | 2020-01-05 16:09 | Discharge Summary ---
Date of Service January 05, 2020 Admission HPI Per Admitting Provider Geena Langston is an 84 year old female who presents to the ER with weeping fluid from her right leg. Difficult to get exact timeline from patient and her but they reports swelling in her right leg since her right hip operation in September after a hip fracture. However, the swelling has been much worse over the last 2 weeks right > left and her is very concerned about fluid seeping out from it. She has multiple venous ulcers / bed sores in various stages of healing which he is also finding harder to treat since her legs are so swollen. She took aspirin 81mg BID for 6 weeks following the operation but has not been on any antiplatelets/anticoagulation since. She denies any fevers or chills. She denies any history of congestive heart failure. She has been wheelchair-bound since this operation but has physical therapy 3 times a day. Of note she was recently treated for a pseudomonas UTI in November with ciprofloxacin. Her symptoms have completely resolved from this. In the ER US venous doppler confirmed extensive DVT in RLE. She also had a minimally elevated troponin but no EKG changes and denies any chest pain or shortness of breath. Principal Diagnosis DVT Bacteremia Discharge Exam Constitutional WD/WN, vitals as above Eyes EOM intact bilaterally; no conjunctival abnormality ENMT external ear and nose normal, oropharynx normal Neck trachea midline, no thyromegaly normal visual inspection Respiratory normal respiratory effort, lungs clear to auscultation no respiratory distress Cardiovascular RRR, no murmur, no edema Gastrointestinal (Abdomen) Inspection/Auscultation: abdomen normal to inspection; abdomen not distended Musculoskeletal no cyanosis or clubbing, extremities motor strength 5/5 Skin no rashes, warm and dry Neurologic moves all extremities and awake Psychiatric Orientation: alert, oriented to person and cooperative Discharge Data Allergies Allergy/AdvReac Type Severity Reaction Status Date / Time No Known Drug Allergies Allergy Unknown Verified 12/28/19 16:49 Consultations 12/28/19 16:01 ED Decision to Admit Stat 01/01/20 10:09 Consult Infectious Diseases Routine Ordered Studies 12/28/19 13:47 US venous doppler LE RT Stat 12/31/19 00:06 MR ankle LT wo con Routine 01/02/20 16:49 CT ankle RT wo con Routine 01/03/20 16:05 CT hip RT wo con Routine Hospital Course (1) Acute DVT (deep venous thrombosis): RLE. Extensive. Provoked VTE event. s/p ORIF of right hip fracture late September, followed by considerable immobility since that time. This is in setting of known varicose veins and venous insufficiency. Spoke with Dr Blakely - preference is that of tam. No clinical evidence of PE(s) at this time. Plan at least 6 months of Rx. - Discharged on Eliquis (2) Bacteremia: coag negative staph. 4/4 bottles from admission. repeat cultures from 12/30/19 negative. source - suspect the LE ulcers. echo w/o signs of endocarditis. MRI left heel w/o osteo. CT and x-rays right foot w/o osteo. CT hip of right hip was also normal. - Per [employer] ID, 2 weeks of IV abx will be adequate given no source found. - Will plan for cefazolin x 2 weeks total. Arranged prior to discharge. (3) Elevated troponin I level: Myocardial demand-ischemia in setting of VTE, bacteremia, etc. no evidence of ACS. echo results noted. (4) Pressure ulcer of left foot: left heel. ~stage 2 (my estimation). x-rays of calcaneous suggested possible osteomyelitis but MRI did not show such. float heels with waffle boots. appreciate wound care recs. cont MVI for wound healing. (5) Venous ulcers of both lower extremities: Ulcer on right lateral ankle, 1 ulcer left callaway, and [address] feet in waffle boots to offload. wound care consult appreciated. ulcers stable. (6) Paroxysmal atrial fibrillation: Was in NSR during entire time while on telemetry. Continue amiodarone 100mg PO BID. (7) Hypothyroidism: Last several TSHs have been all high. This admission's TSH 12.5. This suggests either undertreatment with synthroid OR she is non-compliant. Lives with and he helps considerably with her care. Suspect needs adjustment in dose. - Increased Synthroid to 137.5mcg daily; repeat TSH as outpatient in 6 weeks. (8) Essential tremor: Noted. Not on meds for such. (9) Hypertension: BPs acceptable at this time. Presently 145/70. - Lowered spironolactone on discharge to just once daily. 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 - BMP again stable today. Cr is 1.1. (12) Anemia: Fe studies wnl. Folate wnl. B12 low normal - B12 1000mcg daily IM while here; then PO supplementation at d/c. Total Time Total Time Spent Total Time Spent (In Minutes): 35 Discharge Plan Discharge Items Patient Disposition: Home - Home Health Services Reason For Visit: DVT Discharge Diagnosis: DVT and bacteremia Activity: Resume your previous activity Non-emergency contact: Primary Care Provider Call non-emergency contact if: your symptoms worsen and your temperature is above 101 Follow-up/Referrals: Garfield Blakely MD [Primary Care Provider] - 01/09/20 1:00 pm Diet: Heart Healthy Addtl Attending Provider Instructions: You were admitted with a blood clot in the leg called a DVT. We are starting you on apixaban (a blood thinner) that will help dissolve the clot. You also had bacteria in your bloodstream. We did a thorough check-up and found no evidence it was in your bones or hips. You will be on an IV antibiotic for 9 more days at the recommendation of the Infectious Disease doctors at [facility]. We lowered your spironolactone to once a day while in the hospital, and we would like you to keep it here for now to ensure your blood pressure doesn't go too low. Dr. Blakely can adjust this as needed. Finally, your thyroid was a bit low, we decided to increase your Synthroid slightly. Have Dr. Blakely check your thyroid in 4-6 weeks. Pending Studies at Discharge: No Stand-Alone Forms: My [facility], Smoking Cessation Medications and DC Order Prescriptions: New Eliquis 5 mg Tablet 5 mg PO BID Qty: 60 RF: 0 levothyroxine 137 mcg Tablet 137 mcg PO DAILYBB Qty: 30 RF: 0 Continued amiodarone 200 mg tablet 100 mg PO BID Qty: 90 RF: 3 alprazolam 0.5 mg tablet 0.5 mg PO HS Qty: 90 RF: 1 Lactobacillus acidophilus 1 billion cell tablet 1,000 mmu cells PO QAM RF: 0 calcium carbonate [Calcium 500] 500 mg calcium (1,250 mg) tablet 500 mg PO BID RF: 0 multivitamin [Daily Multi-Vitamin] tablet 1 tab PO QAM RF: 0 vitamin B complex [Vitamins B Complex] tablet 1 tab PO QAM RF: 0 ascorbic acid (vitamin C) 500 mg tablet 500 mg PO BID RF: 0 vitamin E (dl, acetate) 400 unit capsule 400 units PO QAM RF: 0 beta [id number] 5,000-60-30-2 [id number]-to-lkug-mg Tablet 1 tab PO QDD RF: 0 cholecalciferol (vitamin D3) [Vitamin D3] 50 mcg (2,000 unit) Tablet 50 mcg PO QAM RF: 0 diphenhydramine-acetaminophen [Tylenol PM Extra Strength] 25-500 mg Tablet 2 tab PO HS RF: 0 Systane (propylene glycol) 0.4-0.3 % Drops 2 drp OPHTHALMIC (EYE) BID PRN (Reason: Dry Eyes) RF: 0 Changed spironolactone 25 mg tablet 25 mg PO DAILY Qty: 0 RF: 0 Discontinued levothyroxine [Euthyrox] 125 mcg tablet 125 mcg PO QAM RF: 0 trimethoprim 100 mg tablet 100 mg PO QAM RF: 0 alendronate 70 mg tablet 70 mg PO WK RF: 0 Discharge Orders: Discharge Order (Routine); Ordered 01/05/20 Ordered By: James Bush Admission Data Admit Date/Time: 12/29/19 14:58 Attending Provider: James Bush Admit Provider: Garfield Hatch Primary Care Provider: Garfield Blakely Other Providers: Lance Ramsey ; Gio Levi ; Malick Fry I. 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
== END 2020-01-05 11:28 | disposition home health service (06) | DRG 300 ==
LOC: 2N 13:14 → ED 13:14 → 2N 17:43 → SUATTDRO 12-29 14:58